=== PATIENT | female | born 1970 | race Caucasian/White ===

== ENCOUNTER 2018-01-07 07:00 | Emergency (ER) | payer BC, SELFPAY ==
[2018-01-07 07:01] VITALS: BP 138/79; PULSE 79; RESP 15; TEMP 36.7; O2SAT 98; BMI 23.6
--- NOTE | 2018-01-07 07:14 | ED.VISSUMM ---
- ER Visit Summary Date of Service: 01/07/18 Chief Complaint: Back pain History of Present Illness: The patient is a 47 F with low back pain for 2 months. Patient recently took custody of her grandchildren and has been lifting them. It seems to be making her pain worse. Denies any specific injury. She is taking ibuprofen twice a day with minimal relief. She is not sleeping well. She has trouble getting out of bed. She has some nausea. No other GI symptoms. No symptoms. No fever. No rash. She does have some right leg paresthesias. Physical Examination: Afebrile and vital signs unremarkable. Patient appears uncomfortable but not toxic or in distress. Lower lumbar spine diffusely tender to palpation bilaterally. Straight leg raise negative. Neurovascularly intact distally. Good range of motion. Skin appears normal. Test Results: None performed. Emergency Department Course and Treatment: Patient has signs and symptoms of myofascial back pain. Patient was treated with Toradol, Norflex, and Zofran. Will reassess. Patient's pain went from a 10 to an 8. She was treated with morphine subcutaneous. Patient's pain improved after morphine. She continued to have some pain, but now towards the right side of her back in the area of the SI joint. Nothing to suggest infection, fracture, or any other more serious etiologies. Patient was treated with a dose of Kenalog IM. Will prescribe a course of Motrin and Flexeril. Follow-up with primary care in the next week. Treatment Plan: As above Disposition: Discharged Impression: 1. Lumbar back pain This note was generated with [facility] dictation software. It may contain incorrect words, spelling, and punctuation that were not noted in review of the chart prior to signing ED Disposition - Plan for ED Patient: Chief Complaint: Back Referrals: NOT,DEFINED [NON-STAFF] -
[2018-01-07] MEDS: Ketorolac 60 MG/2 ML Vial IM (07:19)
[2018-01-07] MEDS: Ondansetron 4 MG/2 ML Vial IM (07:20)
[2018-01-07] MEDS: Orphenadrine 60 MG/2 ML Ampul IM (07:20)
[2018-01-07] MEDS: Morphine 4 MG/ML Syringe SC (08:13)
--- NOTE | 2018-01-07 08:52 | ED.DEP ---
ED Disposition - Plan for ED Patient: Chief Complaint: Back Instructions: Possible Causes of Low Back or Leg Pain Prescriptions: Cyclobenzaprine [Flexeril] 10 mg PO TID PRN #20 tab PRN Reason: Muscle Spasm Ibuprofen [Motrin] 800 mg PO TID 7 Days #21 tab Additional Instructions: follow up with your doctor in the next week
[2018-01-07] MEDS: Triamcinolone Acetonide 40 MG/ML Vial IM (08:55)
== END 2018-01-07 09:16 | disposition home or self-care (01) ==
PROVIDERS: Emergency Provider Emergency Medicine; Family Provider Family Medicine; PCP Family Medicine
DX: M54.5 Low back pain (principal)
CPT/HCPCS: 96372; 99282; J2405

== ENCOUNTER 2018-05-11 08:50 | Day surgery (SDC) | payer BC, SELFPAY ==
[2018-05-11] VITALS (8 sets, daily range): BP systolic 111–142; BP diastolic 67–86; PULSE 72–84; RESP 14–16; TEMP 36.6–36.8; O2SAT 96–99; BMI 31.8
[2018-05-11 09:28] LABS: Hematocrit 38.6 % (37-47); Hemoglobin 12.9 g/dl (12.0-15.0); Mean Corp Hgb Conc 33.4 g/gl (32-36); Mean Corpuscular Hgb 30.6 pg (27.0-32.0); Mean Corpuscular Volume 91.5 fL (81-99); Mean Platelet Vol. 9.2 fl (6.2-12.0); Platelet Count 294 K/mm3 (150-450); RBC Distribution Width CV 12.6 % (11.6-14.6); RBC Distribution Width SD 41.5 fl (35.1-43.9); Red Blood Count 4.22 M/mm3 (4.2-5.4); Scan Indicated on CBC? Y/N NO; White Blood Count 9.1 K/mm3 (4.4-11.0)
--- NOTE | 2018-05-11 10:25 | EMB_PTH ---
PATIENT: ELTON LEDESMA LOC: [facility] U#:[id number] AGE/SX: 47/F ROOM: RE05/11/[address]: Dr. Sasha Baker DO : 1970 BED: DIS: 05/11/2018 SPEC #: [id number] RECD: 05/11/18 12:33 STATUS: KVNG WENDY #: [id number] LINDSEY: 05/11/18 10:[address]: Sasha Baker DEPT: SURGICAL PATHOLOGY RECD BY: Cameron Landis ENTERED: 05/11/18 15:39 SP TYPE: ENDOM BX/C NATALIYA DR: Dr. Ernesto Mathias MD Tissues: Endometrium, NOS Procedures: Surgery Specimen Level IV HEADER OPERATION: Hysteroscopy, D&C Magda ablation PRE-OP DIAGNOSIS: Menorrhagia TISSUE SUBMITTED: Endometrial curettings MICROSCOPIC DIAGNOSIS Endometrial curettings: Secretory endometrium. SJ:torrie 05/12/18 MICROSCOPIC DESCRIPTION Slides are reviewed. GROSS DESCRIPTION Received is one container labeled with the patient name and designated endometrium curettings. The specimen consists of multiple fragments of hemorrhagic soft tissue that in aggregate measure 5 x 3 x 0.3 cm. The entire specimen consists is totally submitted in two cassettes. / SJ:sp 05/11/18 TC: 4 CPT: 36079
--- NOTE | 2018-05-11 11:53 | DCINST_ITS ---
Discharge Diet: No Restrictions Discharge Activity: May not drive while taking narcotic pain medications., May Not Shower, - - No tub baths Return to work on:: 05/15/18 May resume sexual activity in: 1-2 weeks Weight Bearing Status: Weight bearing as tolerated Lifting Restrictions: None Call your doctor if you observe: Fever of 101 or Higher, Inability to urinate, Inability to have a bowel movement, Using more than one pad per hour, Shortness of breath, Dizziness, Chest pain, Increased palpitations (irregular heartbeat), Calf discomfort, Uncontrolled pain Allergies/Adverse Reactions: Allergies atropine [From ] Allergy (Verified 05/10/18 11:16) Hives erythromycin base Allergy (Verified 05/10/18 11:16) Hives hyoscyamine [From ] Allergy (Verified 05/10/18 11:16) Hives Penicillins [PCN] Allergy (Verified 05/10/18 11:16) Unknown phenobarbital [From ] Allergy (Verified 05/10/18 11:16) Hives scopolamine [From ] Allergy (Verified 05/10/18 11:16) Hives Medications to take at Discharge Ibuprofen [Motrin] 800 mg PO TID 7 Days #21 tab 01/07/18 Primary Care Physician: Ernesto Mathias MD [Primary Care Provider] - Test Results: Test results from this visit will be discussed in further detail at your follow- up appointment, if applicable. Please Follow Up With: Sasha Baker DO When: 1-2 weeks
--- NOTE | 2018-05-11 13:40 | OP.PCM_ITS ---
Problem List (1) Menorrhagia Status: Acute Operative Report Date of Procedure: 05/11/18 Preoperative diagnosis: Menorrhagia Postoperative diagnosis: Menorrhagia Surgeon: Sasha Baker DO Anesthesia: MAC EBL: Minimal, < 50 cc Specimens removed: Endometrial curettings Complications: None Findings: Normal appearing uterine cavity Indications: 47 y/o with hx of menorrhagia. EMB in office benign. Endosee in office without evidence of polyp or fibroid. Pelvic US showed possible adenomyosis. Hx of tubal ligation. Discussed control options/conservative therapies and ablation with patient for menorrhagia. Patient desired ablation. Reviewed increased risk of failure given possible adenomyosis with an ablation. Patient understands this, and that if the ablation fails she will need a hysterectomy. Risks, benefits, alternatives of ablation discussed and she was consented for an ablation. Procedure: She was taken to the operating room where MAC anesthesia was found to be adequate. She was prepped and draped in the dorsal lithotomy position using yellowfin stirrups. Bimanual exam was performed noting a mobile and nonenlarged uterus in an anteverted position. A weighted speculum was placed in the vagina to expose the cervix. The anterior lip of the cervix was grasped with a single- tooth tenaculum. Uterus sounded to 10 cm in length. The cervical length was 5 cm. The cervix was serially dilated to accommodate the hysteroscope. The hysteroscope was then introduced into the uterine cavity and the uterus was distended with normal saline fluid. The cavity was examined and found to be normal without polyps. The scope was then removed. A sharp curettage was performed. The endometrial curettings were sent to pathology for review. The Magda device was then set to the correct cavity length and introduced into the uterine cavity. The device past the cavity assessment. After burn time was complete the device was removed. The tenaculum was removed and the cervix was noted to be hemostatic. The weighted speculum was removed. The patient tolerated the procedure well and was brought to the recovery room in stable condition. At the end of the procedure all instrument counts were correct.
== END 2018-05-11 14:21 | disposition home or self-care (01) ==
LOC: SDC 08:50
PROVIDERS: Family Provider Family Medicine; PCP Family Medicine; Referring Provider Obstetrics & Gynecology; Visit Provider Obstetrics & Gynecology
PROC: 0U5B8ZZ Destruction of Endometrium, Via Natural or Artificial Opening Endoscopic (ICD-10-PCS; CPT 58558; principal; 2018-05-11 10:10)
DX: N92.0 Excessive and frequent menstruation with regular cycle (principal); Z79.891 Long term (current) use of opiate analgesic
CPT/HCPCS: 00952; 58563; 36415; 85027; 86850; 86900; 88305; J7120; J2405

== ENCOUNTER 2018-06-18 09:11 | Observation (INO) | payer BC, SELFPAY ==
[2018-05-11 09:27] VITALS: BMI 31.8
[2018-06-18] VITALS (11 sets, daily range): BP systolic 98–136; BP diastolic 48–76; PULSE 61–97; RESP 16–24; TEMP 36.4–36.7; O2SAT 96–100; BMI 30.4; BMI 30.5; BMI 32.5
--- NOTE | 2018-06-18 09:22 | ED.DCSUM_ITS ---
- ER Visit Summary Date of Service: 06/18/18 Chief Complaint: Vomiting, diarrhea and chest pain History of Present Illness: The patient is a 47 F presenting with vomiting, diarrhea, and chest pain. This started around 2 AM. She has had several episodes of both vomiting and diarrhea. She denies blood in her stool or emesis. She complains of intermittent midsternal chest pressure. She states this is worse when she walks around. She also complains of diffuse abdominal cramping. She also complains of shortness of breath. Denies fever. Denies possibility of bad food exposure. Denies recent antibiotics. Denies other complaints. Physical Examination: Vitals are stable. Patient is afebrile. Alert no acute distress. HEENT exam is unremarkable. Neck is supple. Lungs are clear and equal bilaterally. Heart is regular rate and rhythm. Abdomen is soft mild diffuse tenderness with no rebound or guarding Extremities are unremarkable. Skin is warm and dry. No focal neurologic deficit. Remainder of exam is unremarkable. Emergency Department Course and Treatment: Patient given IV fluids, Zofran, morphine. EKG is sinus rate of 91 with lateral T wave inversion. This is changed from previous. When patient ambulated to the bathroom she started having increasing chest pressure. Repeat EKG shows normal sinus rhythm rate of 92 with lateral T wave inversion. Chest x-ray shows no acute process. CBC shows white count 20.0. Chemistries show potassium 3.3, glucose 136. Lipase is normal. Urinalysis unremarkable. Troponin is negative. D-dimer negative. Due to her elevated white count and abdominal pain, CT abdomen pelvis was obtained and shows fluid-filled loops of colon suggesting diarrhea. No evidence of small bowel obstruction. Status post appendectomy. While in the emergency department patient has had intermittent episodes of chest pressure. She is currently pain- free. She was given aspirin. Discussed with the hospitalist for observation. Disposition: Observation Impression: Chest pain; vomiting and diarrhea This note was generated with [employer] dictation software. It may contain incorrect words, spelling, and punctuation that were not noted in review of the chart prior to signing ED Disposition - Plan for ED Patient: Disposition: Acute Care Hospital [facility] Chief Complaint: Nausea/Vomiting/Diarrhea
--- NOTE | 2018-06-18 09:25 | RAD_ITS ---
STUDY: X-RAY CHEST REASON FOR EXAM: Female, 47 years old. Shortness of breath, dyspnea TECHNIQUE: AP COMPARISON: 08/14/2013 FINDINGS: EKG leads project over the chest. The lungs are clear and expanded. There is no demonstrated pleural abnormality. Normal size heart. Normal mediastinum and tyra. Normal visualized pulmonary arteries. Normal visualized aortic arch and descending thoracic aorta. No acute bony process. Mild scoliosis similar. There is no demonstrated abnormality of the visualized soft tissue structures of the upper abdomen. RAD/Chest 1 View (Portable) IMPRESSION: 1. Stable, nonacute portable x-ray examination of the chest. Electronically Signed: Parish Bustos MD at 9:54 EST , Service support ,
[2018-06-18] MEDS: 0.9% Normal Saline 1,000 ML 1000 ML IV (09:30)
[2018-06-18] MEDS: Ondansetron 4 MG/2 ML Vial IV ×2 (09:30→17:39)
[2018-06-18 09:36] LABS: Absolute Neutrophil Count 18.4 X10^3/uL (2.0-7.7); Basophil# 0.02 X10^3/uL; Basophil% 0.1 % (0-1); Eosinophil# 0.03 X10^3/uL; Eosinophils% 0.2 % (0-5); Hematocrit 42.3 % (37-47); Hemoglobin 14.4 g/dl (12.0-15.0); Mean Corpuscular Hgb 30.2 pg (27.0-32.0); Mean Corpuscular Volume 88.7 fL (81-99); Monocyte# 0.72 X10^3/uL; Monocyte% 3.6 % (0-10); Neutrophil # 18.35 X10^3/uL (2.7-7.7); Neutrophil % 91.9 % (47-70); POSITIVE COUNT NO; POSITIVE MORPHOLOGY NO; Platelet Count 342 K/mm3 (150-450); RBC Distribution Width CV 12.6 % (11.6-14.6); RBC Distribution Width SD 40.2 fl (35.1-43.9); Red Blood Count 4.77 M/mm3 (4.2-5.4)
[2018-06-18 09:54] LABS: Bacteria 0 SEEN /hpf (None Seen); Mucous, Urine 0 SEEN /hpf (<or=2+); Red Blood Cells-Urine 0 SEEN /hpf (0-5)
[2018-06-18 09:55] LABS: D-Dimer Quantitative (DVT/PE) < 0.27 FEU/ug/m (0.27-0.49)
[2018-06-18 09:58] LABS: Color, Urine Yellow (Yellow); Glucose, Dipstick Normal (Normal); Leukocyte Esterase-Dipstick 25 /ul (Negative); Nitrite-Dipstick Negative (Negative); Occult Blood-Urine 25 /ul (Negative); Protein-Dipstick 30 mg/dl (Negative); Specific Gravity, Urine 1.015 (1.002-1.030); Urine Bilirubin Dipstick Negative (Negative); Urine Clarity Sl. Cloudy (Clear); Urine Urobilinogen Normal (Normal); Urine pH 6.5 (5.0 - 8.0)
[2018-06-18 09:59] LABS: Ketone-Dipstick 150 mg/dl (Negative)
[2018-06-18 10:00] LABS: Squamous Epithelial Cells - UA 0-5 SEEN /hpf (5-10); White Blood Cells 0-5 SEEN /hpf (0-5)
[2018-06-18 10:04] LABS: POSITIVE DIFFERENTIAL NO
[2018-06-18 11:03] LABS: AST(SGOT) 19 U/L (15-37); Alanine Aminotransfer ALT/SGPT 23 U/L (13-56); Albumin, Serum 4.1 g/dL (3.2-5.0); Alkaline Phosphatase 77 U/L (45-117); Anion Gap 14 (5-15); BUN 17 mg/dL (7-18); BUN/Creat Ratio 16.8 RATIO (10-20); Bilirubin, Direct 0.18 mg/dL (0.00-0.30); Calcium,Total 8.8 mg/dL (8.5-10.1); Chloride 105 mmol/L (98-107); Creatinine, Serum 1.01 mg/dL (0.55-1.02); EST Glomerular Filtration Rate 63 mL/min (>60); Est Glom Filt Rate - Afr Amer 76 mL/min (>60); Estimated Creatinine Clearance 49.99 ml/min; Globulin 4.3 g/dL (2.2-4.2); Glucose 136 mg/dL (74-106); Lipase 147 U/L (73-393); Potassium 3.3 mmol/L (3.5-5.1); Protein, Total 8.4 g/dL (6.4-8.2); Sodium Level 138 mmol/L (136-145)
--- NOTE | 2018-06-18 11:32 | US_ITS ---
STUDY: ABDOMINAL ULTRASOUND - RIGHT UPPER QUADRANT REASON FOR VISIT: Female, 47 years old. Right upper quadrant pain TECHNIQUE: Ultrasound evaluation of the right upper quadrant was performed with real-time and static sawant-scale imaging. TECHNICAL QUALITY: Limited. Examination limited by bowel gas. COMPARISON: None. FINDINGS: Liver: The liver measures 15.5 cm. There is normal echogenicity of the liver. The bile ducts are within normal limits. There is hepatic color flow. The direction of portal flow is hepatopetal. There is no demonstrated mass lesion. Gallbladder: Normal distended gallbladder. The gallbladder wall measures 2.5 mm. There is a negative sonographic Acevedo's sign. There is no pericholecystic fluid. There are no gallstones. Common Bile Duct (C.B.D.): The common bile duct measures 2.5 mm. Pancreas: Normal size of the head, body and tail of the pancreas. There is normal echogenicity of the pancreas. There is no demonstrated pancreatic mass or cyst. Right Kidney: Normal size of the right kidney. The right kidney measures 9.5 cm. Normal renal cortex. The right cortex measures 1.2 cm. There is no demonstrated renal mass or cyst. There is no right hydronephrosis. US/Gallbladder IMPRESSION: Normal right upper quadrant ultrasound examination. Electronically Signed: Tomás Blair DO at 14:38 EST Tel , Service support ,
--- NOTE | 2018-06-18 11:32 | CT_ITS ---
STUDY: CT ABDOMEN AND PELVIS WITH CONTRAST REASON FOR EXAM: Female, 47 years old. Nausea and vomiting x6 days RADIATION DOSAGE (If Supplied By Facility): CTDIvol = ( 16.37 ) mGy, DLP = ( 1069.16 ) mGycm TECHNIQUE: Transaxial images were obtained from the dome of the diaphragm to the symphysis pubis with oral contrast. 100 ml of Isovue 300 contrast was administered. Sagittal and coronal images were reconstructed. Individualized dose optimization techniques were used for this CT. COMPARISON: None. FINDINGS: The visualized lung bases are unremarkable. The visualized portions of the heart are within normal limits. Normal liver. Normal gallbladder and extrahepatic biliary system. Normal spleen. Normal pancreas. Normal bilateral adrenal glands. Normal right kidney. Normal left kidney. Normal visualized stomach. Normal small intestine. Fluid-filled loops of colon suggesting diarrhea. There are surgical clips in the region of the appendix consistent with a prior appendectomy. Normal abdominal aorta. Normal inferior vena cava. Normal retroperitoneum. Normal urinary bladder. Normal visualized uterus. Normal abdominal wall. Normal osseous structures. CT/Abdomen/Pelvis WITH Contrast IMPRESSION: Fluid-filled loops of colon suggesting diarrhea. No evidence of small bowel obstruction. Status post appendectomy. Electronically Signed: Tomás Blair DO at 14:34 EST Tel , Service support ,
[2018-06-18] MEDS: Morphine 4 MG/ML Syringe IV ×2 (12:00→13:21)
[2018-06-18] MEDS: proMETHazine 25 MG/ML Syringe 6.25 MG IV (12:00)
[2018-06-18] MEDS: Aspirin 325 MG Tablet PO (15:23)
--- NOTE | 2018-06-18 15:36 | PCM.HP.STD ---
Problem List (1) Gastroenteritis Status: Acute (2) Hypokalemia Status: Acute (3) Chest pain Status: Acute History of Present Illness Date of Admission: 06/18/18 Chief Complaint: Nausea vomiting and diarrhea The patient is a 47 year old F in relatively good health who underwent uterine ablation on account of menorrhagia a month prior to her admission who presents with nausea vomiting and diarrhea. Patient does not recall if she was prescribed antibiotics during her procedure. Her symptoms started at night prior to coming in. She did develop abdominal cramps which was later associated with nausea vomiting and had 6 loose bowel movement prior to coming into the ED. In the emergency department patient underwent extensive workup including CT of the abdomen and pelvis which did Fluid-filled loops of colon suggesting diarrhea.. Patient apparently also did develop chest pain when she stood up to go to the bathroom was in the emergency department in was found to have EKG changes mainly T wave inversions. Cardiac enzymes however remain negative. Patient subsequently admitted to a monitored bed for further management Past Medical History Allergies atropine [From ] Allergy (Verified 06/18/18 09:31) Hives erythromycin base Allergy (Verified 06/18/18 09:31) Hives hyoscyamine [From ] Allergy (Verified 06/18/18 09:31) Hives Penicillins [PCN] Allergy (Verified 06/18/18 09:31) Unknown phenobarbital [From ] Allergy (Verified 06/18/18 09:31) Hives scopolamine [From ] Allergy (Verified 06/18/18 09:31) Hives Home Medications: Ambulatory Orders Medication Instructions Recorded Ibuprofen [Motrin] 800 mg PO TID 7 Days #21 tab 01/07/18 Smoking Status: Never smoker - *Family History Maternal History Items: Diabetes Paternal History Items: Diabetes, Heart Disease - Father of a massive heart attack at age 56 Review of Systems Constitutional: Reports: Anorexia, Malaise, Weakness HEENT: Denies: Head Aches, Sinus Congestion, Sinus Drainage Cardiovascular: Reports: Chest Pain Respiratory: Denies: Cough, Shortness of breath at rest, Shortness of breath upon exertion, Sputum production Gastrointestinal: Reports: Abdominal Pain, Diarrhea, Melena, Vomiting Genitourinary: Denies: Dysuria, Frequency, Hematuria, Urgency Musculoskeletal: Denies: Joint Pain, Joint Tenderness Skin: Denies: Rash Neurological: Denies: Focal weakness, Numbness, Tingling Psychiatric: Denies: Homicidal Ideations, Suicidal Ideations VTE Information - Inpt Only VTE Present on Admission: No VTE Mechan Device Prophylaxis: SCD's VTE Pharm Prophylaxis ordered?: No Patient Problems: Active and Suspected Problems Gastroenteritis (Acute) Hypokalemia (Acute) Chest pain (Acute) Objective: GENERAL: cooperative HEENT: Atraumatic; moist oral mucosa EYES; Anicteric, Normal Conjunctiva NECK; supple, normal thyroid, no distended JVD. RESPIRATORY: Diminished to auscultation bilaterally, CARDIOVASCULAR: Regular S1 S2, no audible murmurs GI: soft, no focal tenderness, normoactive bowel sounds, : No Renal angle tenderness; EXTREMITIES: No edema, no clubbing, no cyanosis. MUSCULOSKELETAL: No Joint Tenderness; no muscle waisting NEURO: Awake; no lateralizing signs. SKIN: No Rash PSYCH; Normal affect - Physical Exam Vital Signs Temp Pulse Resp BP Pulse Ox 97.6 F L 88 16 120/64 100 06/18/18 09:12 06/18/18 15:20 06/18/18 15:20 06/18/18 15:20 06/18/18 15:20 Oxygen Flow Rate (L/min) 2 Oxygen Delivery Method Room Air Weight: 70.8 kg Body Mass Index (BMI) 30.4 Laboratory Tests Past 24 Hrs 06/18/18 06/18/18 06/18/18 09:25 09:25 09:25 WBC 20.0 H RBC 4.77 Hgb 14.4 Hct 42.3 MCV 88.7 MCH 30.2 MCHC 34.0 RDW 12.6 RDW Differential 40.2 Plt Count 342 MPV 9.0 Immature Gran % (Auto) 0.200 Neut % (Auto) 91.9 H Lymph % (Auto) 4.0 L Stark % (Auto) 3.6 Eos % (Auto) 0.2 Baso % (Auto) 0.1 Absolute Neuts (auto) 18.4 H Absolute Lymphs (auto) 0.80 L Total Counted Not Reportable D-Dimer Quant (PE/DVT) < 0.27 L Sodium 138 Potassium 3.3 L Chloride 105 Carbon Dioxide 19.0 L Anion Gap 14 BUN 17 Creatinine 1.01 Estim Creat Clear Calc 49.99 Est GFR (MDRD) Af Amer 76 Est GFR (MDRD) Non-Af 63 BUN/Creatinine Ratio 16.8 Glucose 136 H Calcium 8.8 Total Bilirubin 0.90 Direct Bilirubin 0.18 AST 19 ALT 23 Alkaline Phosphatase 77 Troponin I < 0.015 Total Protein 8.4 H Albumin 4.1 Globulin 4.3 H Lipase 147 Urine Color Urine Clarity Urine pH Ur Specific [place] Urine Protein Urine Glucose (UA) Urine Ketones Urine Occult Blood Urine Nitrite Urine Bilirubin Urine Urobilinogen Ur Leukocyte Esterase Urine RBC Urine WBC Ur Squamous Epith Cells Urine Bacteria Urine Mucus 06/18/18 09:45 WBC RBC Hgb Hct MCV MCH MCHC RDW RDW Differential Plt Count MPV Immature Gran % (Auto) Neut % (Auto) Lymph % (Auto) Stark % (Auto) Eos % (Auto) Baso % (Auto) Absolute Neuts (auto) Absolute Lymphs (auto) Total Counted D-Dimer Quant (PE/DVT) Sodium Potassium Chloride Carbon Dioxide Anion Gap BUN Creatinine Estim Creat Clear Calc Est GFR (MDRD) Af Amer Est GFR (MDRD) Non-Af BUN/Creatinine Ratio Glucose Calcium Total Bilirubin Direct Bilirubin AST ALT Alkaline Phosphatase Troponin I Total Protein Albumin Globulin Lipase Urine Color Yellow Urine Clarity Sl. Cloudy Urine pH 6.5 Ur Specific [place] 1.015 Urine Protein 30 H Urine Glucose (UA) Normal Urine Ketones 150 H Urine Occult Blood 25 H Urine Nitrite Negative Urine Bilirubin Negative Urine Urobilinogen Normal Ur Leukocyte Esterase 25 H Urine RBC 0 SEEN Urine WBC 0-5 SEEN Ur Squamous Epith Cells 0-5 SEEN Urine Bacteria 0 SEEN Urine Mucus 0 SEEN Assessment/Plan All Active Problems Menorrhagia (Acute) Gastroenteritis (Acute) Hypokalemia (Acute) Chest pain (Acute) Patient is a 47-year-old lady presented with nausea vomiting and diarrhea 1. Acute colitis: Patient presented with nausea vomiting diarrhea, in addition patient had elevated WBC count. CT of the abdomen obtained in the emergency department demonstrated Fluid-filled loops of colon suggesting diarrhea. No evidence of small bowel obstruction patient admitted to a monitored bed placing enteric precautions as well as ruling out C. difficile. The meantime patient was treated symptomatically with IV fluids as well as Cipro and Flagyl 2. Chest pain: Admitted to a monitored bed ruling out OH with serial enzymes patient undergo a nuclear stress test possibly as outpatient once her colitis resolves 3. Recent endometrial ablation on account of menorrhagia 4. History of appendectomy 5. DVT prophylaxis SC Lovenox Clinical Impression(s) from Imaging Studies Chest X-Ray 06/18/18 09:25 IMPRESSION: 1. Stable, nonacute portable x-ray examination of the chest. Electronically Signed: Parish Bustos MD at 9:54 EST , Service support , Abdomen/Pelvis CT 06/18/18 11:32 IMPRESSION: Fluid-filled loops of colon suggesting diarrhea. No evidence of small bowel obstruction. Status post appendectomy. Electronically Signed: Tomás Blair DO at 14:34 EST Tel , Service support , Code Visit OBSV E&M: 37210 Initial observation care L3
[2018-06-18] MEDS: Ibuprofen 400 MG Tablet 800 MG PO (17:32)
[2018-06-18] MEDS: Ciprofloxacin 400 MG/200 ML BAG 200 MG IV (22:05)
[2018-06-19] VITALS (8 sets, daily range): BP systolic 103–112; BP diastolic 57–61; PULSE 57–74; RESP 16–18; TEMP 36.2–36.6; O2SAT 92–99
--- NOTE | 2018-06-19 06:00 | RAD_ITS ---
STUDY: X-RAY - ABDOMEN/PELVIS REASON FOR EXAM: Female, 47 years old. Nausea vomiting and diarrhea TECHNIQUE: One view COMPARISON: None. FINDINGS: There is contrast within nondistended colon. The tip of the nasogastric tube is in the stomach. There is no small bowel distention and no free intraperitoneal air. There are no abnormal calcifications in the expected locations of the kidneys. RAD/Abdomen Single View IMPRESSION: No acute findings in the abdomen. Electronically Signed: Faisal Sultana MD at 7:59 EST Tel , Service support ,
[2018-06-19 06:48] LABS: Hematocrit 34.8 % (37-47); Hemoglobin 11.1 g/dl (12.0-15.0); Mean Corp Hgb Conc 31.9 g/gl (32-36); Mean Corpuscular Volume 94.1 fL (81-99); Mean Platelet Vol. 9.3 fl (6.2-12.0); Platelet Count 263 K/mm3 (150-450); White Blood Count 5.5 K/mm3 (4.4-11.0)
[2018-06-19 06:52] LABS: Scan Indicated on CBC? Y/N NO
[2018-06-19 07:05] LABS: ALB/GLOB Ratio 0.9 RATIO (0.9-2.4); AST(SGOT) 17 U/L (15-37); Alanine Aminotransfer ALT/SGPT 15 U/L (13-56); Albumin, Serum 2.8 g/dL (3.2-5.0); Alkaline Phosphatase 55 U/L (45-117); Anion Gap 6 (5-15); BUN 10 mg/dL (7-18); BUN/Creat Ratio 13.5 RATIO (10-20); Calcium,Total 7.3 mg/dL (8.5-10.1); Chloride 112 mmol/L (98-107); Creatinine, Serum 0.74 mg/dL (0.55-1.02); EST Glomerular Filtration Rate 89 mL/min (>60); Est Glom Filt Rate - Afr Amer 108 mL/min (>60); Estimated Creatinine Clearance 68.23 ml/min; Globulin 3.1 g/dL (2.2-4.2); Glucose 89 mg/dL (74-106); Potassium 3.7 mmol/L (3.5-5.1); Protein, Total 5.9 g/dL (6.4-8.2); Sodium Level 142 mmol/L (136-145); Thyroid Stim Hormone (TSH) 0.86 uIU/mL (0.358-3.74)
[2018-06-19] MEDS: Ciprofloxacin 400 MG/200 ML BAG 200 MG IV (10:29)
[2018-06-19] MEDS: Enoxaparin 40 MG/0.4 ML Syringe SC (10:37)
--- NOTE | 2018-06-19 12:02 | DCINST_ITS ---
- Discharge Diagnoses Current Active Problems: Current Active and Chronic Problems Gastroenteritis (Acute) Hypokalemia (Acute) Chest pain (Acute) Reason(s) for Visit for Discharge Instructions: Diarrhea, nausea, vomiting You will use the following diet at home:: Regular Your food should be the consistency of: Regular Your liquids should be the consistency of: Regular/Thin Discharge Activity: Return to Normal Activity Additional Instructions: Continue to keep yourself hydrated. Maintain good hand- hygiene. Come back to the ED if diarrhea worsens or you develop a fever or chills or worsening abdominal pain. Allergies/Adverse Reactions: Allergies atropine [From ] Allergy (Verified 06/18/18 09:31) Hives erythromycin base Allergy (Verified 06/18/18 09:31) Hives hyoscyamine [From ] Allergy (Verified 06/18/18 09:31) Hives Penicillins [PCN] Allergy (Verified 06/18/18 09:31) Unknown phenobarbital [From ] Allergy (Verified 06/18/18 09:31) Hives scopolamine [From ] Allergy (Verified 06/18/18 09:31) Hives Medications to take at Discharge Ibuprofen [Motrin] 800 mg PO TID 7 Days #21 tab 01/07/18 Primary Care Physician: Ernesto Mathias MD [NON-STAFF] - Please follow up with your Primary Care Physician in: within 1-2 weeks Test Results: Test results from this visit will be discussed in further detail at your follow- up appointment, if applicable. Proposed Discharge Date: 06/19/18
--- NOTE | 2018-06-19 12:03 | PCM.DC.SUM ---
Discharge Date and Diagnosis Date of Admission: 06/18/18 Date of Discharge: 06/19/18 - Primary Discharge Diagnosis Active and Suspected Problems Acute Norovirus Gastroenteritis (Acute) Hypokalemia (Acute) Chest pain (Acute) - Secondary Discharge Diagnosis None Hospital Course and Treatment Imaging Results: Clinical Impression(s) from Imaging Studies Chest X-Ray 06/18/18 09:25 IMPRESSION: 1. Stable, nonacute portable x-ray examination of the chest. Electronically Signed: Parish Bustos MD at 9:54 EST , Service support , Abdomen/Pelvis CT 06/18/18 11:32 IMPRESSION: Fluid-filled loops of colon suggesting diarrhea. No evidence of small bowel obstruction. Status post appendectomy. Electronically Signed: Tomás Blair DO at 14:34 EST Tel , Service support , Gallbladder Ultrasound 06/18/18 11:32 IMPRESSION: Normal right upper quadrant ultrasound examination. Electronically Signed: Tomás Blair DO at 14:38 EST Tel , Service support , KUB X-Ray 06/19/18 06:00 IMPRESSION: No acute findings in the abdomen. Electronically Signed: Faisal Sultana MD at 7:59 EST Tel , Service support , ADDENDUM: 06/19/18 2341 None Operations: None Procedures: None Summary of Care Provided: The patient is a 47 year old F with no significant past medical history who comes in with complaints of nausea vomiting and diarrhea, more than 6 times on the day of admission. Patient admits to having going to [facility] with her family and all of them subsequently in less than 24 hours was sick with vomiting and diarrhea. She had an elevated white cell count on arrival. CT of abdomen pelvis showed fluid-filled loops of colon suggestive of diarrhea. No evidence of small bowel obstruction was seen. Shee also complained of chest pain, EKG was unremarkable, serial enzymes were negative. Patient was admitted to a telemetry bed, stool studies was negative for C. difficile, positive for neurovirus. Patient received IV fluids. She was hypokalemic on admission but resolved the next day. She was consulted on hand hygiene after bowel movements. Encouraged to drink lots of fluids. She was given 2 days of work to recuperate. Patient will need a stress test in the outpatient once her acute gastroenteritis resolves. Subjective: On the day of discharge, patient denied any new complaints, she felt improved. No abdominal pain or fever or chills. Has had only one bowel movement. - Physical Exam General: Alert, Oriented x3, Cooperative, No apparent distress, - HEENT: Atraumatic, PERRLA, EOMI, Normocephalic Oral: Moist Mucosa - Obese Neck: Supple, No JVD, Negative Carotid Bruits Lungs: Clear to auscultation, Normal air movement Cardiovascular: Regular rate, Regular Rhythm, Normal S1, Normal S2, No murmurs Abdomen: Bowel Sounds Present, Soft, Non Tender, Non-Distended, No Hepato-splenomegaly Extremities: No edema Skin: No rashes, No breakdown Musculoskeletal: No Tenderness to Palpation of Joints or Extremities Lymphatic: No Cervical, Supraclavicular, or Inguinal Adenopathy Neurological: Cranial nerves II-XII grossly intact, Neuro grossly intact Psych/Mental Status: Normal Affect, Appropriate Vital Signs Temp Pulse Resp BP Pulse Ox 97.8 F 74 18 110/58 L 99 06/19/18 09:30 06/19/18 11:07 06/19/18 09:30 06/19/18 09:30 06/19/18 09:30 Oxygen Flow Rate (L/min) 2 Oxygen Delivery Method Room Air Weight: 75.5 kg Body Mass Index (BMI) 32.5 Intake and Output for Last 24 Hours 06/17/18 06/18/18 06/19/18 23:59 23:59 23:59 Intake Total 1482 / 1482 843 / 843 Output Total 300 / 300 Balance 1182 / 1182 843 / 843 Microbiology Past 72 Hours 06/19/18 08:45 C. difficile DNA Amplification - Final Stool Laboratory Tests Past 24 Hrs 06/18/18 06/18/18 06/18/18 15:43 17:28 19:04 WBC RBC Hgb Hct MCV MCH MCHC RDW RDW Differential Plt Count MPV D-Dimer Quant (PE/DVT) Cancelled Sodium Potassium Chloride Carbon Dioxide Anion Gap BUN Creatinine Estim Creat Clear Calc Est GFR (MDRD) Af Amer Est GFR (MDRD) Non-Af BUN/Creatinine Ratio Glucose Calcium Total Bilirubin AST ALT Alkaline Phosphatase Troponin I < 0.015 < 0.015 Total Protein Albumin Globulin Albumin/Globulin Ratio TSH 06/19/18 06/19/18 05:57 05:57 WBC 5.5 RBC 3.70 L Hgb 11.1 L Hct 34.8 L MCV 94.1 MCH 30.0 MCHC 31.9 L RDW 13.0 RDW Differential 43.0 Plt Count 263 MPV 9.3 D-Dimer Quant (PE/DVT) Sodium 142 Potassium 3.7 Chloride 112 H Carbon Dioxide 24.0 Anion Gap 6 BUN 10 Creatinine 0.74 Estim Creat Clear Calc 68.23 Est GFR (MDRD) Af Amer 108 Est GFR (MDRD) Non-Af 89 BUN/Creatinine Ratio 13.5 Glucose 89 Calcium 7.3 L Total Bilirubin 0.70 AST 17 ALT 15 Alkaline Phosphatase 55 Troponin I Total Protein 5.9 L Albumin 2.8 L Globulin 3.1 Albumin/Globulin Ratio 0.9 TSH 0.86 Discharge Diet: No Restrictions Discharge Activity: Return to Normal Activity Home Medications: Medications to take at Discharge Ibuprofen [Motrin] 800 mg PO TID 7 Days #21 tab 01/07/18 Primary Care Physician: Ernesto Mathias MD [NON-STAFF] - Please follow up with your Primary Care Physician in: within 1-2 weeks Medical Necessity - Tobacco Use Smoking Status: Never smoker Tobacco Use: Non-smoker Meaningful Use Info Meaningful Use Diagnoses (Choose all that apply): None applicable Code Visit Inpatient E&M: 44192 Subs Hosp L2
[2018-06-19] MEDS: Ibuprofen 400 MG Tablet 800 MG PO (12:23)
== END 2018-06-19 12:00 | disposition home or self-care (01) ==
LOC: ED 09:21 → PCU 15:35
PROVIDERS: Admitting Provider Internal Medicine; Emergency Provider Emergency Medicine; Visit Provider Internal Medicine
DX: A08.19 Acute gastroenteropathy due to other small round viruses (principal); E87.6 Hypokalemia; R07.89 Other chest pain; R06.00 Dyspnea, unspecified; Z23 Encounter for immunization
CPT/HCPCS: 36415; 71045; 74018; 74177; 76705; 80048; 80053; 80076; 81001; 83690; 84443; 84484; 85025; 85027; 85379; 87493; 87506; 93005; 96361; 96365; 96366; 96367; 96372; 96375; 96376; 99218; 99251; 99283; J7030; Q9967; 90686; A4216; G0378; G0463; J0744; J2405

== ENCOUNTER 2018-11-05 21:01 | Emergency (ER) | payer BC, SELFPAY ==
[2018-06-18 16:32] VITALS: BMI 32.5
[2018-11-05 21:05] VITALS: BP 145/80; PULSE 95; RESP 16; TEMP 36.9; O2SAT 95; BMI 32.0
--- NOTE | 2018-11-05 21:18 | CT_ITS ---
STUDY: CT ABDOMEN AND PELVIS WITHOUT CONTRAST REASON FOR EXAM: Female, 48 years old. Dark stool. Abdominal pain. RADIATION DOSAGE (If Supplied By Facility): CTDIvol = ( 9.63 ) mGy, DLP = ( 447.32 ) mGycm TECHNIQUE: Transaxial images were obtained from the dome of the diaphragm to the symphysis pubis without oral contrast, and without intravenous contrast. Sagittal and coronal images were reconstructed. Individualized dose optimization techniques were used for this CT. COMPARISON: 06/18/2018. FINDINGS: The visualized lung bases are unremarkable. The visualized portions of the heart are within normal limits. There is decreased attenuation of the liver consistent with steatosis. There is hepatomegaly. Normal gallbladder and extrahepatic biliary system. Normal spleen. Normal pancreas. Normal bilateral adrenal glands. Normal right kidney. Normal left kidney. No definite renal or ureteral stones are seen. There is no hydronephrosis on either side. Evaluation of the GI tract is limited by absence of oral contrast. Cannot exclude stomach wall thickening. No dilated loops of bowel or evidence for obstruction. Cannot exclude segmental thickening of the marinelli of the small or large bowel. Cannot exclude enteritis or colitis. Moderate diffuse fecal retention. Diverticulosis without definite diverticulitis. Appendix has been removed. Normal abdominal aorta. Normal inferior vena cava. Normal retroperitoneum. Normal urinary bladder. Normal visualized uterus. There is a small umbilical hernia containing fat. Normal osseous structures. CT/Abdomen/Pelvis without Cont IMPRESSION: No acute abnormality seen. Fatty liver and hepatomegaly. Electronically Signed: Dread Nichols MD at 22:10 EDT , Service support ,
--- NOTE | 2018-11-05 21:33 | ED.VISSUMM ---
- ER Visit Summary Date of Service: 11/05/18 Chief Complaint: Abdominal pain History of Present Illness: The patient is a 48 F who presents with abdominal pain. Started earlier today. She has sharp diffuse abdominal pain. She states sometimes it concentrates in the lower abdomen. She denies nausea, vomiting, diarrhea or constipation. She has had no urinary symptoms. She had a uterine ablation in April and has had an appendectomy in the past. She denies any fevers. She took 3 ibuprofen which did not help with her pain today. Physical Examination: Vital signs reviewed. HEENT exam unremarkable. Heart is regular rate and rhythm without murmurs. Lungs are clear to auscultation. Abdomen is soft with suprapubic tenderness to palpation. There is no guarding or rebound tenderness. Extremities reveal no edema. Skin exam normal. Neurologic exam normal. Test Results: Laboratory studies are unremarkable save for a white blood count of 14.1 and AST is 12. UA has no infection. CT of the abdomen pelvis without contrast reveals no acute findings. Emergency Department Course and Treatment: Patient was given morphine but she still had some pressure in her abdomen so I gave her fentanyl. She is allergic to hyoscyamine and scopolamine so I did not elect to give her any dicyclomine. Patient will be discharged with naproxen to see if this will help with her pain. I do not see any acute pathology at this time. She will need to call her PCP tomorrow for follow-up Treatment Plan: [] Disposition: Discharge Impression: Abdominal pain This note was generated with [employer] dictation software. It may contain incorrect words, spelling, and punctuation that were not noted in review of the chart prior to signing ED Disposition - Plan for ED Patient: Referrals: Care Physician,No Primary [Primary Care Provider] -
[2018-11-05] MEDS: Morphine 4 MG/ML Syringe IV (21:36)
[2018-11-05 21:46] LABS: Bacteria 0 SEEN /hpf (None Seen); Mucous, Urine 0 SEEN /hpf (<or=2+); Red Blood Cells-Urine 0 SEEN /hpf (0-5)
[2018-11-05 21:48] LABS: Color, Urine Yellow (Yellow); Glucose, Dipstick Normal (Normal); Ketone-Dipstick Negative (Negative); Leukocyte Esterase-Dipstick 25 /ul (Negative); Nitrite-Dipstick Negative (Negative); Occult Blood-Urine 150 /ul (Negative); Protein-Dipstick Negative (Negative); Specific Gravity, Urine 1.015 (1.002-1.030); Urine Bilirubin Dipstick Negative (Negative); Urine Clarity Cloudy (Clear); Urine Urobilinogen Normal (Normal)
[2018-11-05 21:50] LABS: Absolute Lymphocyte Count 1.43 X10^3/ul (0.83-4.51); Absolute Neutrophil Count 11.5 X10^3/uL (2.0-7.7); Basophil# 0.02 X10^3/uL; Basophil% 0.1 % (0-1); Eosinophil# 0.13 X10^3/uL; Eosinophils% 0.9 % (0-5); Hematocrit 38.9 % (37-47); Hemoglobin 12.9 g/dl (12.0-15.0); Lymphocyte # 1.43 X10^3/ul (4.0); Lymphocyte % 10.1 % (19-41); Mean Corp Hgb Conc 33.2 g/gl (32-36); Mean Corpuscular Hgb 30.4 pg (27.0-32.0); Mean Corpuscular Volume 91.5 fL (81-99); Mean Platelet Vol. 9.3 fl (6.2-12.0); Monocyte# 1.02 X10^3/uL; Monocyte% 7.2 % (0-10); Neutrophil # 11.52 X10^3/uL (2.7-7.7); Neutrophil % 81.6 % (47-70); POSITIVE COUNT NO; POSITIVE DIFFERENTIAL NO; POSITIVE MORPHOLOGY NO; Platelet Count 275 K/mm3 (150-450); RBC Distribution Width CV 12.9 % (11.6-14.6); RBC Distribution Width SD 42.8 fl (35.1-43.9); Red Blood Count 4.25 M/mm3 (4.2-5.4); White Blood Count 14.1 K/mm3 (4.4-11.0)
[2018-11-05 21:58] LABS: Squamous Epithelial Cells - UA 0-5 SEEN /hpf (5-10)
[2018-11-05 21:59] LABS: White Blood Cells 0-5 SEEN /hpf (0-5)
[2018-11-05 22:03] LABS: ALB/GLOB Ratio 1.1 RATIO (0.9-2.4); AST(SGOT) 12 U/L (15-37); Alanine Aminotransfer ALT/SGPT 17 U/L (13-56); Albumin, Serum 4.1 g/dL (3.2-5.0); Alkaline Phosphatase 71 U/L (45-117); Anion Gap 7 (5-15); BUN 13 mg/dL (7-18); BUN/Creat Ratio 13.1 RATIO (10-20); Calcium,Total 8.4 mg/dL (8.5-10.1); Chloride 106 mmol/L (98-107); Creatinine, Serum 0.99 mg/dL (0.55-1.02); EST Glomerular Filtration Rate 64 mL/min (>60); Est Glom Filt Rate - Afr Amer 77 mL/min (>60); Estimated Creatinine Clearance 50.46 ml/min; Globulin 3.9 g/dL (2.2-4.2); Glucose 95 mg/dL (74-106); Potassium 3.5 mmol/L (3.5-5.1); Sodium Level 139 mmol/L (136-145)
[2018-11-05] MEDS: fentaNYL 100 MCG/2 ML Ampul 50 MCG IV (22:45)
[2018-11-05 22:48] VITALS: BP 121/58; PULSE 78; RESP 18; O2SAT 96
--- NOTE | 2018-11-05 22:52 | ED.DEP ---
ED Disposition - Plan for ED Patient: Disposition: Home or Assisted Living Instructions: ED Abdominal Pain Unkn Cause Prescriptions: Naproxen [Naprosyn] 500 mg PO BID PRN #20 tab Referrals: Care Physician,No Primary [Primary Care Provider] -
[2018-11-05 23:14] VITALS: RESP 18
== END 2018-11-05 23:14 | disposition home or self-care (01) ==
PROVIDERS: Emergency Provider Emergency Medicine
DX: R10.9 Unspecified abdominal pain (principal)
CPT/HCPCS: 74176; 80053; 81001; 85025; 96374; 96375; 99283; A4216

== ENCOUNTER 2018-11-07 03:14 | Emergency (ER) | payer BC, SELFPAY ==
[2018-11-07 03:14] VITALS: BP 163/81; PULSE 91; RESP 16; TEMP 36.8; O2SAT 98; BMI 27.8
--- NOTE | 2018-11-07 03:31 | ED.VIS.GEN ---
History of Present Illness Informant: Patient Narrative: Stated for the last 3 days she has had lower abdominal pain. She describes it as sharp and cramping. It is continuous and waxes and wanes. It is in her diffuse lower abdomen. She stated she is on her period currently. She has had 3 days of mild spotting. She had a uterine ablation done last April and started having spotting symptoms in August 3 days/month. She denies any nausea vomiting or diarrhea. Normal bowel movement schedule. She was seen in the emergency department 2 days ago and had lab work and a CAT scan that showed no acute abnormalities other than a mild leukocytosis. She is unsure of the cause. Her pain got worse tonight. She has had pain with her periods in the past. She states that usually does not hurt this bad though. She has an appointment with her MARKETING PRODUCTION COORDINATOR tomorrow. No vaginal discharge. No urinary symptoms. <Dickson Stevenson - Last Filed: 11/07/18 04:30> <Clive Balderas - Last Filed: 11/07/18 09:07> Chief Complaint: Abd Pain - Past Medical History (1) Chest pain Status: Acute (2) Gastroenteritis Status: Acute (3) Hypokalemia Status: Acute (4) Menorrhagia Status: Acute <Dickson Stevenson - Last Filed: 11/07/18 04:30> Past Medical History Prior records reviewed: Yes Surgical History: appendectomy Lives: Spouse/ Significant Other Smoking Status: Never smoker Alcohol: None Drugs: None - Family History Maternal Family History: Reports: Diabetes Paternal Family History: Reports: Diabetes, Heart Disease - Father of a massive heart attack at age 56 <Dickson Stevenson - Last Filed: 11/07/18 04:30> <Clive Balderas - Last Filed: 11/07/18 09:07> - Allergies and Home Meds Allergies/Adverse Reactions: Allergies atropine [From ] Allergy (Verified 11/07/18 03:19) Hives erythromycin base Allergy (Verified 11/07/18 03:19) Hives hyoscyamine [From ] Allergy (Verified 11/07/18 03:19) Hives Penicillins [PCN] Allergy (Verified 11/07/18 03:19) Unknown phenobarbital [From ] Allergy (Verified 11/07/18 03:19) Hives scopolamine [From ] Allergy (Verified 11/07/18 03:19) Hives Primary Care Physician: Care Physician,No Primary [Primary Care Provider] - Review of Systems General: Denies: Chills, Fever, Sweats Eyes: Denies: Visual changes - bilaterally, Diplopia ENT: Denies: Rhinorrhea, Sore throat Cardiovascular: Denies: Chest pain, Palpitations Respiratory: Denies: Dyspnea, Cough, Dyspnea on exertion Gastrointestinal: Reports: Abdominal pain. Denies: Nausea, Vomiting, Diarrhea, Melena, Hematochezia Genitourinary: Denies: Dysuria, Hematuria, Frequency Musculoskeletal: Denies: Back pain, Extremity Pain Skin: Denies: Rash, Wounds Neurological: Denies: Headache, Weakness, Numbness <Dickson Stevenson - Last Filed: 11/07/18 04:30> Physical Exam Vital Signs/Narrative: Vital Signs Temp Pulse Resp BP Pulse Ox 11/07/18 03:14 98.2 F 91 16 163/81 H 98 General: Well nourished, Well developed, No Acute Distress Head: Normocephalic, Atraumatic Eyes: Perrl, EOMI ENT: Moist mucous membranes, No rhinorrhea Neck: Supple, Nontender Cardiovascular: Regular rate, Regular rhythm, No murmurs Respiratory: No distress, CTA bilaterally, Chest nontender Abdomen: Soft, Nondistended, Normal bowel sounds, Tender - Mild diffuse lower abdominal tenderness. Negative for: Nontender, Guarding, Rebound tenderness, Acevedo's sign Back: Nontender, Normal Inspection Extremities: Nontender, No edema Skin: Normal color, No rash Neurological: Alert, Oriented x3, Cranial nerves II-XII grossly intact, Normal Strength, Normal Sensation Psychological: Normal affect, Normal Mood <Dickson Stevenson - Last Filed: 11/07/18 04:30> Vital Signs/Narrative: Vital Signs Pulse Resp BP Pulse Ox 11/07/18 07:32 74 18 132/70 H 100 11/07/18 05:14 76 16 129/76 H 96 <Clive Balderas - Last Filed: 11/07/18 09:07> Diagnostic/Tx/Re-eval - Medical Decision Making Patient has isolated tenderness over lower abdomen diffusely. Patient given IV fluids and a dose of fentanyl. Lab work obtained lab work was unremarkable. Including urine analysis. Patient did feel better after treatment but still has some lower abdominal pain. She is concerned that this may be secondary to ovarian cyst that she has had them before. This could be her menses related pain although her menses are very mild now with her bleeding although this could be menses related pains from cramping. She asked if I could order her an ultrasound prior to her MARKETING PRODUCTION COORDINATOR appointment today she has an appointment at 10 AM. I feel this is reasonable. She will undergo an ultrasound which will be signed out to the a.m. physician for further evaluation. Further disposition is pending. <Dickson Stevenson - Last Filed: 11/07/18 04:30> - Medical Decision Making Patient was turned over to me pending ultrasound results. Ultrasound showed an enlarged uterine fibroid and thickened endometrium. There is a dilated right fallopian tube. There is no other acute abnormality noted. She felt better on reevaluation. Patient was instructed to follow-up with her MARKETING PRODUCTION COORDINATOR in 3 to 5 days. Patient understood and was agreeable with the plan. All questions were answered. <Clive Balderas - Last Filed: 11/07/18 09:07> ED Disposition <Dickson Stevenson - Last Filed: 11/07/18 04:30> <Clive Balderas - Last Filed: 11/07/18 09:07> - Plan for ED Patient: Disposition: Home or Assisted Living Diagnosis: Fibroid uterus Instructions: ED Pelvic Pain UKO, ED Fibroids Referrals: Care Physician,No Primary [Primary Care Provider] - Additional Instructions: Follow-up with your MARKETING PRODUCTION COORDINATOR in 3 to 5 days.
--- NOTE | 2018-11-07 03:34 | ED.DCSUM_ITS ---
History of Present Illness Informant: Patient Narrative: Stated for the last 3 days she has had lower abdominal pain. She describes it as sharp and cramping. It is continuous and waxes and wanes. It is in her diffuse lower abdomen. She stated she is on her period currently. She has had 3 days of mild spotting. She had a uterine ablation done last April and started having spotting symptoms in August 3 days/month. She denies any nausea vomiting or diarrhea. Normal bowel movement schedule. She was seen in the emergency department 2 days ago and had lab work and a CAT scan that showed no acute abnormalities other than a mild leukocytosis. She is unsure of the cause. Her pain got worse tonight. She has had pain with her periods in the past. She states that usually does not hurt this bad though. She has an appointment with her PUBLIC HEALTH TRAINING ASSISTANT tomorrow. No vaginal discharge. No urinary symptoms. <Dickson Stevenson - Last Filed: 11/07/18 04:30> <Clive Balderas - Last Filed: 11/07/18 09:07> Chief Complaint: Abd Pain - Past Medical History (1) Chest pain Status: Acute (2) Gastroenteritis Status: Acute (3) Hypokalemia Status: Acute (4) Menorrhagia Status: Acute <Dickson Stevenson - Last Filed: 11/07/18 04:30> Past Medical History Prior records reviewed: Yes Surgical History: appendectomy Lives: Spouse/ Significant Other Smoking Status: Never smoker Alcohol: None Drugs: None - Family History Maternal Family History: Reports: Diabetes Paternal Family History: Reports: Diabetes, Heart Disease - Father of a massive heart attack at age 56 <Dickson Stevenson - Last Filed: 11/07/18 04:30> <Clive Balderas - Last Filed: 11/07/18 09:07> - Allergies and Home Meds Allergies/Adverse Reactions: Allergies atropine [From ] Allergy (Verified 11/07/18 03:19) Hives erythromycin base Allergy (Verified 11/07/18 03:19) Hives hyoscyamine [From ] Allergy (Verified 11/07/18 03:19) Hives Penicillins [PCN] Allergy (Verified 11/07/18 03:19) Unknown phenobarbital [From ] Allergy (Verified 11/07/18 03:19) Hives scopolamine [From ] Allergy (Verified 11/07/18 03:19) Hives Primary Care Physician: Care Physician,No Primary [Primary Care Provider] - Review of Systems General: Denies: Chills, Fever, Sweats Eyes: Denies: Visual changes - bilaterally, Diplopia ENT: Denies: Rhinorrhea, Sore throat Cardiovascular: Denies: Chest pain, Palpitations Respiratory: Denies: Dyspnea, Cough, Dyspnea on exertion Gastrointestinal: Reports: Abdominal pain. Denies: Nausea, Vomiting, Diarrhea, Melena, Hematochezia Genitourinary: Denies: Dysuria, Hematuria, Frequency Musculoskeletal: Denies: Back pain, Extremity Pain Skin: Denies: Rash, Wounds Neurological: Denies: Headache, Weakness, Numbness <Dickson Stevenson - Last Filed: 11/07/18 04:30> Physical Exam Vital Signs/Narrative: Vital Signs Temp Pulse Resp BP Pulse Ox 11/07/18 03:14 98.2 F 91 16 163/81 H 98 General: Well nourished, Well developed, No Acute Distress Head: Normocephalic, Atraumatic Eyes: Perrl, EOMI ENT: Moist mucous membranes, No rhinorrhea Neck: Supple, Nontender Cardiovascular: Regular rate, Regular rhythm, No murmurs Respiratory: No distress, CTA bilaterally, Chest nontender Abdomen: Soft, Nondistended, Normal bowel sounds, Tender - Mild diffuse lower abdominal tenderness. Negative for: Nontender, Guarding, Rebound tenderness, Acevedo's sign Back: Nontender, Normal Inspection Extremities: Nontender, No edema Skin: Normal color, No rash Neurological: Alert, Oriented x3, Cranial nerves II-XII grossly intact, Normal Strength, Normal Sensation Psychological: Normal affect, Normal Mood <Dickson Stevenson - Last Filed: 11/07/18 04:30> Vital Signs/Narrative: Vital Signs Pulse Resp BP Pulse Ox 11/07/18 07:32 74 18 132/70 H 100 11/07/18 05:14 76 16 129/76 H 96 <Clive Balderas - Last Filed: 11/07/18 09:07> Diagnostic/Tx/Re-eval - Medical Decision Making Patient has isolated tenderness over lower abdomen diffusely. Patient given IV fluids and a dose of fentanyl. Lab work obtained lab work was unremarkable. Including urine analysis. Patient did feel better after treatment but still has some lower abdominal pain. She is concerned that this may be secondary to ovarian cyst that she has had them before. This could be her menses related pain although her menses are very mild now with her bleeding although this could be menses related pains from cramping. She asked if I could order her an ultrasound prior to her PUBLIC HEALTH TRAINING ASSISTANT appointment today she has an appointment at 10 AM. I feel this is reasonable. She will undergo an ultrasound which will be signed out to the a.m. physician for further evaluation. Further disposition is pending. <Dickson Stevenson - Last Filed: 11/07/18 04:30> - Medical Decision Making Patient was turned over to me pending ultrasound results. Ultrasound showed an enlarged uterine fibroid and thickened endometrium. There is a dilated right fallopian tube. There is no other acute abnormality noted. She felt better on reevaluation. Patient was instructed to follow-up with her PUBLIC HEALTH TRAINING ASSISTANT in 3 to 5 days. Patient understood and was agreeable with the plan. All questions were answered. <Clive Balderas - Last Filed: 11/07/18 09:07> ED Disposition <Dickson Stevenson - Last Filed: 11/07/18 04:30> <Clive Balderas - Last Filed: 11/07/18 09:07> - Plan for ED Patient: Disposition: Home or Assisted Living Diagnosis: Fibroid uterus Instructions: ED Pelvic Pain [facility], ED Fibroids Referrals: Care Physician,No Primary [Primary Care Provider] - Additional Instructions: Follow-up with your PUBLIC HEALTH TRAINING ASSISTANT in 3 to 5 days.
[2018-11-07 03:48] LABS: Absolute Lymphocyte Count 2.35 X10^3/ul (0.83-4.51); Absolute Neutrophil Count 4.8 X10^3/uL (2.0-7.7); Basophil# 0.02 X10^3/uL; Basophil% 0.2 % (0-1); Eosinophil# 0.27 X10^3/uL; Eosinophils% 3.3 % (0-5); Hematocrit 38.1 % (37-47); Hemoglobin 12.7 g/dl (12.0-15.0); Lymphocyte # 2.35 X10^3/ul (4.0); Lymphocyte % 28.6 % (19-41); Mean Corp Hgb Conc 33.3 g/gl (32-36); Mean Corpuscular Hgb 30.5 pg (27.0-32.0); Mean Corpuscular Volume 91.6 fL (81-99); Mean Platelet Vol. 9.5 fl (6.2-12.0); Monocyte# 0.75 X10^3/uL; Monocyte% 9.1 % (0-10); Neutrophil # 4.81 X10^3/uL (2.7-7.7); Neutrophil % 58.7 % (47-70); Platelet Count 274 K/mm3 (150-450); RBC Distribution Width CV 12.7 % (11.6-14.6); RBC Distribution Width SD 41.4 fl (35.1-43.9); Red Blood Count 4.16 M/mm3 (4.2-5.4); White Blood Count 8.2 K/mm3 (4.4-11.0)
[2018-11-07 03:49] LABS: Bacteria 0 SEEN /hpf (None Seen); Mucous, Urine 0 SEEN /hpf (<or=2+)
[2018-11-07] MEDS: fentaNYL 100 MCG/2 ML Ampul 50 MCG IV ×2 (03:49→05:20)
[2018-11-07] MEDS: 0.9% Normal Saline 1,000 ML 1000 ML IV (03:49)
[2018-11-07 03:51] LABS: Color, Urine Yellow (Yellow); Glucose, Dipstick Normal (Normal); Ketone-Dipstick 5 mg/dl (Negative); Leukocyte Esterase-Dipstick 25 /ul (Negative); Nitrite-Dipstick Negative (Negative); Occult Blood-Urine 150 /ul (Negative); Protein-Dipstick 15 mg/dl (Negative); Urine Bilirubin Dipstick Negative (Negative); Urine Clarity Clear (Clear); Urine Urobilinogen 1 mg/dl (Normal); Urine pH 6.5 (5.0 - 8.0)
[2018-11-07 03:58] LABS: Internal QC Validated? YES +Cl - CLEAR BKGD; POSITIVE COUNT NO; POSITIVE DIFFERENTIAL NO; POSITIVE MORPHOLOGY NO; Pregnancy, Serum, hCG Quali. NEGATIVE Negative
[2018-11-07 04:00] LABS: Red Blood Cells-Urine 0-5 SEEN /hpf (0-5); Squamous Epithelial Cells - UA 5-10 SEEN /hpf (5-10); White Blood Cells 5-10 SEEN /hpf (0-5)
[2018-11-07 04:04] LABS: Anion Gap 8 (5-15); BUN 12 mg/dL (7-18); BUN/Creat Ratio 13.7 RATIO (10-20); Calcium,Total 8.2 mg/dL (8.5-10.1); Chloride 109 mmol/L (98-107); Creatinine, Serum 0.88 mg/dL (0.55-1.02); EST Glomerular Filtration Rate 73 mL/min (>60); Est Glom Filt Rate - Afr Amer 89 mL/min (>60); Estimated Creatinine Clearance 71.12 ml/min; Glucose 125 mg/dL (74-106); Potassium 3.6 mmol/L (3.5-5.1); Sodium Level 143 mmol/L (136-145)
[2018-11-07 05:14] VITALS: BP 129/76; PULSE 76; RESP 16; O2SAT 96
--- NOTE | 2018-11-07 07:30 | US_ITS ---
STUDY: ULTRASOUND OF THE FEMALE PELVIS - COMPLETE REASON FOR EXAM: Female, 48 years old. 3 day history of lower abdominal pain. Negative test. LMP: November 03, 2018. TECHNIQUE: Transvaginal TECHNICAL QUALITY: Adequate. COMPARISON: Comparison is made with prior CT scan of the abdomen and pelvis dated November 05, 2018. FINDINGS: The uterus is anteverted and is in a midline position. The uterus is enlarged and measures 10.8 cm x 7.4 cm x 6.2 cm. There is a Nabothian cyst of the cervix. The endometrium is thickened and measures 26 mm in thickness, and is hyperechoic. There is no demonstrated endometrial mass. There is a 1.5 cm x 1.6 cm x 1.3 cm fundal fibroid. I.U.D. - The patient does not have an I.U.D. The right ovary is visualized. The right ovary measures 3.8 cm x 2.5 cm x 2.0 within it, there is a dominant follicle measuring 1.8 cm x 1.4 cm x 1.2 cm. cm. Adjacent to the right ovary, there is a 2.5 cm x 1.4 cm x 1.1 cm longitudinal hypoechoic density suggestive of possible dilated right fallopian tube. There is no visualized right adnexal mass or complex lesion. There is normal arterial and normal venous vascularity. The left ovary is visualized. The left ovary measures 2.8 cm x 3.5 cm x 1.9 cm. There is no left ovarian cyst or ovarian mass. There is no visualized left adnexal mass or complex lesion. There is normal arterial and normal venous vascularity. There is no fluid in the cul-de-sac. Polycystic ovary disease: No. US/Transvaginal Non- IMPRESSION: Enlarged fibroid uterus with thickening of the endometrium measuring 26 mm. Dominant right ovarian follicle. Findings suggestive of a dilated right fallopian tube. Electronically Signed: Mehran Novak, at 8:54 EDT , Service support ,
[2018-11-07 07:32] VITALS: BP 132/70; PULSE 74; RESP 18; O2SAT 100
[2018-11-07 09:00] VITALS: BP 160/82; PULSE 86; RESP 16; O2SAT 100
[2018-11-07 09:13] VITALS: BP 108/74; PULSE 62; RESP 15; O2SAT 98
== END 2018-11-07 09:14 | disposition home or self-care (01) ==
PROVIDERS: Emergency Provider Emergency Medicine
DX: D25.9 Leiomyoma of uterus, unspecified (principal); R93.89 Abnormal findings on diagnostic imaging of other specified body structures
CPT/HCPCS: 76830; 80048; 81001; 84703; 85025; 96361; 96374; 96376; 99283; J7030; A4216

== ENCOUNTER 2018-11-23 11:28 | Observation (INO) | payer BC, SELFPAY ==
--- NOTE | 2018-11-18 10:34 | EKG12_ITS ---
Test Reason : PRE-OP Blood Pressure : / mmHG Vent. Rate : 070 BPM Atrial Rate : 070 BPM P-R Int : 122 ms QRS Dur : 088 ms QT Int : 426 ms P-R-T Axes : 181 174 125 degrees QTc Int : 460 ms Suspect arm lead reversal, interpretation assumes no reversal Unusual P axis, possible ectopic atrial rhythm Right axis deviation Abnormal ECG Confirmed by VERONICA BEST, KAE ([id number]), food editor EZEQUIEL ROCHE ([id number]) on 11/22/2018 11:54:42 AM Referred By: Sasha Baker Confirmed By:KAE MARTIN MD
--- NOTE | 2018-11-22 07:48 | HP.PCM_ITS ---
- Problem List (1) Pelvic pain Status: Acute (2) History of endometrial ablation Status: Acute History Date of Admission: 11/23/18 History of this : This is a 48 year-old who presents with pelvic cramping and pain. S/p endometrial ablation. H/o tubal ligation in the past. Her cramping is constant and daily, made worse when on her period. She presented to the ED twice for this pain and had a CTAP that was non-acute. She had follow up with a PCP as well for a second opinion to determine if there is a GI source of this pain. Surgical History: Surgical History (Last Updated 11/22/18 @ 07:46 by Sasha Baker DO) History of appendectomy Z90.49 History of ovarian cystectomy Z98.890, Z87.42 History of surgical removal of ganglion cyst Z98.890 History of tubal ligation Z98.51 Allergies atropine [From ] Allergy (Verified 11/16/18 08:59) Hives erythromycin base Allergy (Verified 11/16/18 08:59) Hives hyoscyamine [From ] Allergy (Verified 11/16/18 08:59) Hives Penicillins [PCN] Allergy (Verified 11/16/18 08:59) Unknown phenobarbital [From ] Allergy (Verified 11/16/18 08:59) Hives scopolamine [From ] Allergy (Verified 11/16/18 08:59) Hives Home Medications: Home Medications Ibuprofen 800 mg PO Q8H PRN PRN 11/16/18 Smoking Status: Never smoker Alcohol: None History Past Pregnancies: Past Pregnancies Delivery Date Name GA/Weeks Outcome Route Weight Gender Labor Length Anesthesia Delivery Location Provider FOB Review of Systems Constitutional: Denies: Chills, Fever, Malaise Eyes: Denies: Blurred vision HEENT: Denies: Head Aches Cardiovascular: Denies: Chest Pain Respiratory: Denies: Cough, Shortness of Breath Gastrointestinal: Reports: Abdominal Pain. Denies: Constipation, Diarrhea, Dyspepsia, Nausea, Melena, Vomiting Genitourinary: Denies: Dysuria, Frequency, Hematuria, Hesitancy Gynecological: Reports: Vaginal bleeding. Denies: Vaginal discharge, Vaginal itching Skin: Denies: Lesions, Rash Neurological: Denies: Blurred vision, Confusion, Headaches Hematologic/ Lymphatic: Denies: Easy Bruising, Easy Bleeding Physical Exam General: Alert, No apparent distress HEENT: Atraumatic Cardiovascular: Regular rate Lungs: Clear to auscultation Abdomen: Soft, Non-Distended, Tender, - - No gaurding, rebounding, rigidity Extremities:: No edema Neurological: Neuro grossly intact COLOR CHECKER ROVING OR YARN: Normal external genitalia Assessment/Plan All Active Problems Menorrhagia (Acute) Gastroenteritis (Acute) Hypokalemia (Acute) Chest pain (Acute) Pelvic pain (Acute) History of endometrial ablation (Acute) This is a 48 year-old who presents with constant pelvic cramping and pain. S/p endometrial ablation and h/o prior tubal sterilization. Was evaluated by PCP as well to r/o GI cause for the pain. 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 Discussed r/b/a of ROBERT, BS, cysto, possible oophorectomy, possible laparotomy and patient consented. Patient desires to proceed with a hysterectomy and understands that it may not improve her pain. To proceed with hysterectomy as planned.
--- NOTE | 2018-11-22 15:46 | EKG12_ITS ---
Test Reason : PRE OP Blood Pressure : / mmHG Vent. Rate : 088 BPM Atrial Rate : 088 BPM P-R Int : 122 ms QRS Dur : 088 ms QT Int : 390 ms P-R-T Axes : 038 035 038 degrees QTc Int : 471 ms Normal sinus rhythm Incomplete right bundle branch block Cannot rule out Anterior infarct , age undetermined Abnormal ECG Confirmed by NISSA BEST, NORMA ([id number]), supervising film or videotape editor EZEQUIEL ROCHE ([id number]) on 11/27/2018 3:03:08 PM Referred By: Sasha Baker Confirmed By:NORMA AZAR MD
[2018-11-23] VITALS (17 sets, daily range): BP systolic 99–149; BP diastolic 59–79; PULSE 66–93; RESP 16–18; TEMP 36.3–37.3; O2SAT 93–100; BMI 32.6
[2018-11-23] MEDS: Acetaminophen 500 MG Tablet 1000 MG PO ×2 (08:05→18:13)
[2018-11-23] MEDS: Enoxaparin 40 MG/0.4 ML Syringe SC (08:05)
[2018-11-23] MEDS: Celecoxib 200 MG Capsule 400 MG PO (08:06)
[2018-11-23] MEDS: Gabapentin 600 MG Tablet PO (08:06)
[2018-11-23] MEDS: Phenazopyridine 95 MG Tablet 190 MG PO (08:06)
[2018-11-23 08:16] LABS: Bedside Glucose 86 mg/dL (70-110)
[2018-11-23] MEDS: Lactated Ringers 1,000 ML 40 ML IV (08:21)
[2018-11-23] MEDS: Magnesium Sulfate 4gm/100mL 4 GM/100 ML IV.SOLN. IV (08:22)
[2018-11-23] MEDS: dexAMETHasone 10 MG/ML Vial 8 MG IV (08:22)
--- NOTE | 2018-11-23 09:05 | HYST_PTH ---
PATIENT: ELTON LEDESMA LOC: [facility] U#:[id number] AGE/SX: 48/F ROOM: [facility]320 RE11/23/[address]: Dr. Sasha Baker DO : 1970 BED: 1 DIS: 11/24/2018 SPEC #: [id number] RECD: 11/23/18 13:42 STATUS: KVNG REAda #: [id number] LINDSEY: 11/23/18 09:[address]: Sasha Baker DEPT: SURGICAL PATHOLOGY RECD BY: Lavon Patino ENTERED: 11/23/18 14:29 SP TYPE: HYSTERECT OTHR DR: Dr. Clive Roque MD No Primary Care Phys Tissues: Uterus, NOS Procedures: Surgery Specimen Level V HEADER OPERATION: ERAS, hysterectomy, lap-assisted vaginal, bilateral salpingectomy PRE-OP DIAGNOSIS: Menorrhagia, pelvic pain TISSUE SUBMITTED: Uterus and bilateral fallopian tubes MICROSCOPIC DIAGNOSIS Uterus, hysterectomy: Cervix - nabothian cysts and mild chronic inflammation. Endometrium - proliferative endometrium. Myometrium - adenomyosis. Right fallopian tube - no pathologic change. Left fallopian tube - no pathologic change. AM:natali 11/24/18 MICROSCOPIC DESCRIPTION Slides are reviewed. GROSS DESCRIPTION Received in fixative is one container labeled with the patient's name and designated uterus. The specimen consists of a uterus with attached cervix and attached right and left fallopian tubes. The uterus with cervix measures 11.5 x 8 x 6 cm and weighs 83 gm. The ectocervix is grossly unremarkable. The cervical os is oval in contour. The endocervical canal measures 4.5 cm in length and is grossly unremarkable. The triangular endometrial cavity measures 4 x 3.5 cm. The endometrium measures up to 0.2 cm in thickness and is reddish-mosqueda in color. The right and left fallopian tubes are similar in appearance with average lengths of 6.5 cm and maximal diameters of 0.7 cm. Both fimbriated ends have a normal villous appearance. Web Art Director sections are submitted as follows: 1 - anterior cervix, 2 - posterior cervix, 3-5 - anterior uterine wall, 6 & 7 - posterior uterine wall, 8 - right fallopian tube, 9 - left fallopian tube. / AM:natali 11/23/18 TC:5 CPT: 97301
[2018-11-23] MEDS: Bupivacaine Mpf 0.5% 30 ML VIAL (11:10)
--- NOTE | 2018-11-23 11:31 | PCM.OPRPT ---
Problem List (1) Pelvic pain Status: Acute (2) History of endometrial ablation Status: Acute Report of Operation Date of Procedure: 11/23/18 Pre-Operative Diagnosis: H/o uterine ablation, pelvic pain and cramping Post-Operative Diagnosis: As above Surgery/Procedure Performed:: LAVH, BS, cystoscopy Description of Surgical Findings:: Enlarged and boggy uterus. A single endometriosis lesion < 0.5 cm in size on right fallopian tube. No other endometriosis noted. Otherwise normal appearing adnexa, bilateral ovarian fossa, and pelvic CDS. Normal appearing liver edge and gallbladder disabilities caregiver: Chelsie Gaines Type of Anesthesia:: General Specimen's removed: Uterus, cervix, bilateral fallopian tubes Drains: Keller Estimated Blood Loss (mL): 200 Fluids Replaced: 1800 Description of Procedure: Patient prepped and draped in usual sterile fashion in dorsal lithotomy position under general anesthesia. A weighted speculum was placed to expose the cervix. A single tooth tenaculum was placed on the anterior lip of the cervix and a Radha cannula was placed for uterine manipulation. A keller catheter was placed. Gloves were then changed and attention turned to the abdominal portion of the case. A 5 mm infraumbilical port was placed under direct visualization with the camera. Once confirmed intraperitoneal, the abdomen was insufflated. Findings noted as above. A 5 mm left lateral port was placed. A 5 mm right lateral port was placed. The left fallopian tube, uteroovarian ligament and round ligament was cauterized and transected. The remainder of the cardinal ligament, uterine vessels, anterior and posterior sheaths of the broad ligament were cauterized and transected in a serial manner to the uterine artery. The bladder flap was started. The uterine artery was cauterized. The same was performed on the right side to the level of the uterine artery, and the right uterine artery was cauterized. The bladder flap was finished. At this time the laparoscope was removed, and attention was turned to the vaginal portion of the case. The Radha cannula was removed. A circumferential incision was made at the cervicovaginal junction. Anterior and posterior colpotomies were made. The right uterosacral ligament was clamped, cut, and suture ligated. The left uterosacral ligament was clamped, cut, and suture ligated. Several additional clamps were placed bilaterally along the cardinal ligaments, which were cut and suture ligated. The uterus was removed. A Lazo's culdoplasty was performed. The vaginal cuff was closed in an interrupted fashion using several [id number]-in-[id number] sutures. A cystoscopy was performed noting a normal appearing bladder, and good bilateral ureteral jets. All instruments were removed from the vagina. Gloves were then changed and attention was turned to the abdominal portion of the case. The abdomen was insufflated and the pelvis was inspected and hemostasis was noted. The camera and ports were then removed. The port sites were closed with monocryl and dermabond was placed over the incisions. Instrument counts were correct. The patient tolerated the procedure well and was taken to recovery room in stable condition. Grafts/Implants Used: None - Complications None - Admit VTE Documentation VTE Present on Admission: No VTE Mechan Device Prophylaxis: SCD's VTE Pharm Prophylaxis ordered?: Yes
[2018-11-23] MEDS: Ondansetron 4 MG/2 ML Vial IV (12:39)
[2018-11-23] MEDS: Lactated Ringers 1,000 ML 70 ML IV (13:36)
[2018-11-23] MEDS: Ketorolac 30 MG/ML Syringe IV ×2 (13:36→18:14)
[2018-11-23] MEDS: oxyCODONE 5 MG Tablet PO (18:46)
[2018-11-23] MEDS: Magnesium Oxide 400 MG Tablet PO (18:46)
[2018-11-23] MEDS: Docusate Sodium 100 MG Capsule PO (21:45)
[2018-11-24] MEDS: Ketorolac 30 MG/ML Syringe IV ×2 (00:10→06:27)
[2018-11-24] MEDS: Acetaminophen 500 MG Tablet 1000 MG PO ×3 (00:10→11:59)
[2018-11-24] MEDS: oxyCODONE 5 MG Tablet PO (02:53)
[2018-11-24] MEDS: Lactated Ringers 1,000 ML 70 ML IV (02:54)
[2018-11-24 05:00] VITALS: BP 111/60; PULSE 81; RESP 16; TEMP 36.8; O2SAT 95
[2018-11-24 06:12] LABS: Hematocrit 33.2 % (37-47); Hemoglobin 9.2 g/dl (12.0-15.0); Mean Corp Hgb Conc 27.7 g/gl (32-36); Mean Corpuscular Hgb 25.4 pg (27.0-32.0); Mean Corpuscular Volume 91.7 fL (81-99); Mean Platelet Vol. 9.7 fl (6.2-12.0); Platelet Count 281 K/mm3 (150-450); RBC Distribution Width CV 12.6 % (11.6-14.6); RBC Distribution Width SD 40.8 fl (35.1-43.9); Red Blood Count 3.62 M/mm3 (4.2-5.4); White Blood Count 13.9 K/mm3 (4.4-11.0)
[2018-11-24 06:16] LABS: Scan Indicated on CBC? Y/N NO
[2018-11-24 08:02] VITALS: O2SAT 91
--- NOTE | 2018-11-24 08:39 | PCM.PN.OB ---
Subjective: Patient doing well. Ronnell reg diet without n/v. Ambulating to chair and back. +Spont void without difficulty. Pain controlled. Denies lightheadedness, dizziness, CP, SOB, leg pain. She has no complaints - Physical Exam General: Alert, No apparent distress HEENT: Atraumatic Lungs: Normal air movement Abdomen: Soft, Non-Distended, - - ATTP, incisions c/d/i Extremities: No edema, No Calf Tenderness Skin: No rashes Neurological: Neuro grossly intact Psych/Mental Status: Normal Affect, Appropriate Vital Signs Temp Pulse Resp BP Pulse Ox 98.3 F 81 16 111/60 95 11/24/18 05:00 11/24/18 05:00 11/24/18 05:00 11/24/18 05:00 11/24/18 05:00 Oxygen Flow Rate (L/min) 1.5 Oxygen Delivery Method Room Air Weight: 167 lb 1.766 oz Body Mass Index (BMI) 32.6 Intake and Output for Last 24 Hours 11/22/18 11/23/18 11/24/18 23:59 23:59 23:59 Intake Total 1999 / 1999 1538 / 1538 Output Total 475 / 475 700 / 700 Balance 1525 / 1525 838 / 838 Laboratory Tests Past 24 Hrs 11/23/18 11/24/18 07:52 05:45 WBC 13.9 H RBC 3.62 L Hgb 9.2 L Hct 33.2 L MCV 91.7 MCH 25.4 L MCHC 27.7 L RDW 12.6 RDW Differential 40.8 Plt Count 281 MPV 9.7 Blood Type A NEGATIVE Antibody Screen NEGATIVE Medical Necessity - Tobacco Use Smoking Status: Never smoker Assessment/Plan All Active Problems (Last Updated 11/22/18 @ 07:46 by Sasha Baker DO) Menorrhagia (Acute) Gastroenteritis (Acute) Hypokalemia (Acute) Chest pain (Acute) Pelvic pain (Acute) History of endometrial ablation (Acute) POD#1 s/p ROBERT, BS, cysto - Pt doing well - Discussed surgical findings with pt - Encouraged more ambulation today prior to discharge home - Dispo: D/c home today. Discharge instructions reviewed
--- NOTE | 2018-11-24 08:41 | PCM.DC ---
You will use the following diet at home:: No restrictions, Regular Discharge Activity: May not drive while taking narcotic pain medications., May Shower May resume sexual activity in: 6-8 weeks Weight Bearing Status: Weight bearing as tolerated Lifting Restrictions: No heavy lifting > 20 pounds Call your doctor if your incision/area has: Sudden Increased Bleeding, Increased Pain/ Swelling, Increased Redness, Foul Smelling Discharge, Swelling at the incision site Call your doctor if you observe: Fever of 101 or Higher, Inability to urinate, Inability to have a bowel movement, Using more than one pad per hour, Shortness of breath, Dizziness, Fainting spells, Chest pain, Increased palpitations (irregular heartbeat), Calf discomfort, Uncontrolled pain Suture Line Care: Avoid Pulling/Pushing, Avoid Pinching/Bending Cleanse incision/area with: Soap & Water Allergies/Adverse Reactions: Allergies atropine [From ] Allergy (Verified 11/16/18 08:59) Hives erythromycin base Allergy (Verified 11/16/18 08:59) Hives hyoscyamine [From ] Allergy (Verified 11/16/18 08:59) Hives Penicillins [PCN] Allergy (Verified 11/16/18 08:59) Unknown phenobarbital [From ] Allergy (Verified 11/16/18 08:59) Hives scopolamine [From ] Allergy (Verified 11/16/18 08:59) Hives Medications to take at Discharge Ibuprofen 800 mg PO Q8H PRN PRN 11/16/18 Orders to be completed after discharge: 12 Lead EKG [CVS] Time Frame: 11/22/18, Facility: [facility], Location: Cardiovascular Services 12 Lead EKG [CVS] Time Frame: 11/16/18, Facility: [facility], Location: Cardiovascular Services Primary Care Physician: Care Physician,No Primary [Primary Care Provider] - Test Results: Test results from this visit will be discussed in further detail at your follow-up appointment, if applicable. Please Follow Up With: Sasha Baker DO Proposed Discharge Date: 11/24/18
[2018-11-24] MEDS: Enoxaparin 40 MG/0.4 ML Syringe SC (09:02)
[2018-11-24] MEDS: Docusate Sodium 100 MG Capsule PO (09:02)
[2018-11-24 10:29] VITALS: BP 91/55; PULSE 67; RESP 18; TEMP 36.9; O2SAT 95
[2018-11-24] MEDS: Lactated Ringers 1,000 ML 999 ML IV (11:58)
[2018-11-24] MEDS: 0.9% NaCl Peripheral Flush Adult/Peds IV (11:59)
[2018-11-24 12:18] LABS: Absolute Lymphocyte Count 1.66 X10^3/ul (0.83-4.51); Absolute Neutrophil Count 12.8 X10^3/uL (2.0-7.7); Hematocrit 33.2 % (37-47); Hemoglobin 10.9 g/dl (12.0-15.0); Lymphocyte # 1.66 X10^3/ul (4.0); Lymphocyte % 10.5 % (19-41); Mean Corp Hgb Conc 32.8 g/gl (32-36); Mean Corpuscular Hgb 30.2 pg (27.0-32.0); Mean Platelet Vol. 9.2 fl (6.2-12.0); Monocyte# 1.27 X10^3/uL; Monocyte% 8.1 % (0-10); Neutrophil # 12.79 X10^3/uL (2.7-7.7); Neutrophil % 81.2 % (47-70); Platelet Count 257 K/mm3 (150-450); RBC Distribution Width CV 12.8 % (11.6-14.6); RBC Distribution Width SD 43.1 fl (35.1-43.9); Red Blood Count 3.61 M/mm3 (4.2-5.4); White Blood Count 15.8 K/mm3 (4.4-11.0)
[2018-11-24 12:22] LABS: POSITIVE COUNT NO; POSITIVE DIFFERENTIAL NO; POSITIVE MORPHOLOGY NO
[2018-11-24 12:51] VITALS: BP 117/59; PULSE 71
[2018-11-24 15:24] VITALS: BP 110/61; PULSE 75; RESP 18; TEMP 36.8; O2SAT 95
== END 2018-11-24 15:40 | disposition home or self-care (01) ==
LOC: SDC 12:08 → MS3 11-24 06:16
PROVIDERS: Admitting Provider Obstetrics & Gynecology; Referring Provider Obstetrics & Gynecology; Visit Provider Obstetrics & Gynecology
PROC: 0UT9FZZ Resection of Uterus, Via Natural or Artificial Opening With Percutaneous Endoscopic Assistance (ICD-10-PCS; CPT 58552; principal; 2018-11-23 08:40)
DX: N88.8 Other specified noninflammatory disorders of cervix uteri (principal); N80.0 Endometriosis of uterus
CPT/HCPCS: 00940; 58552; 36415; 82962; 85025; 85027; 86850; 86900; 88307; 93005; 94762; 96374; 96375; 96376; 99218; J7120; A4216; G0378; G0379; J2405

== ENCOUNTER → 2019-02-07 | Outpatient (CLI) | payer OTHER, SELFPAY ==
[2019-02-06 14:16] VITALS: BMI 32.4
== END | disposition home or self-care (01) ==
LOC: PSN 08:56
PROVIDERS: Family Provider Family Medicine; PCP Family Medicine; Referring Provider Specialist; Visit Provider Specialist
DX: R00.2 Palpitations (principal)
CPT/HCPCS: 93225; 93226

== ENCOUNTER → 2019-02-22 | Outpatient (CLI) | payer OTHER, SELFPAY ==
[2019-02-06 14:16] VITALS: BMI 32.4
--- NOTE | 2019-02-22 06:34 | ECHOD_ITS ---
Reason For Study: CP, SOB, DIZZINESS Procedure This was a 2D Doppler, Color Flow transthoracic echocardiogram. Exam performed in department. Left Ventricle Normal size and thickness. The estimated ejection fraction is 60 %. No evidence for diastolic dysfunction. No regional wall motion abnormalities noted. Right Ventricle Normal RV size. Normal systolic function. Atria Normal left atrium. Normal right atrium. No doppler evidence for ASD. Mitral Valve There is no mitral valve stenosis. No mitral valve insufficiency. Tricuspid Valve There is no tricuspid stenosis. Unable to estimate RV systolic pressure due to inadequate jet, pulmonary artery pressure probably normal. Aortic Valve Trisinus/trileaflet aortic valve. There is no aortic stenosis. No aortic valve insufficiency. Pulmonic Valve There is no pulmonic valvular stenosis. No pulmonic valve insufficiency. Great Vessels Normal aortic root. Pericardium/Pleural No pericardial effusion. Medication Performed a rapid injection of agitated mix of 9 cc saline and 1cc air to assess for atrial septal defect. MMode/2D Measurements & Calculations LVIDd: 4.4 cm IVSd: 0.70 cm Ao root diam: 2.9 cm LVIDs: 3.0 cm LVPWd: 0.90 cm RVDd: 3.0 cm FS: 30.9 % LAV(MOD-bp): 38.7 ml LVAd ap4: 24.6 cm2 SV(MOD-sp4): 45.6 ml LAV(MOD-bp) Indexed: 22.4 ml/m2 EDV(MOD-sp4): 70.5 ml LAV(MOD-sp2): 38.9 ml EDV(sp4-el): 72.2 ml LAV(MOD-sp4): 34.6 ml LVAs ap4: 13.6 cm2 ESV(MOD-sp4): 24.9 ml ESV(sp4-el): 26.1 ml EF(MOD-sp4): 64.7 % EF(sp4-el): 63.8 % SV(sp4-el): 46.1 ml LA A4 area: 14.9 cm2 LA dimension(2D): 3.6 cm RA A4 area: 11.0 cm2 Time Measurements MV dec time: 0.20 sec Doppler Measurements & Calculations MV E max bernabe: 108.5 cm/sec Lat Peak E' Bernabe: 12.5 cm/sec Med Peak E' Bernabe: 8.6 cm/sec MV A max bernabe: 82.1 cm/sec E/E' lat: 8.7 E/E' med: 12.6 MV E/A: 1.3 Ao V2 max: 129.8 cm/sec LV V1 max: 113.8 cm/sec PA V2 max: 90.4 cm/sec Ao max P.7 mmHg LV V1 max P.2 mmHg TR max bernabe: 268.5 cm/sec TR max P.8 mmHg Interpretation Summary The estimated ejection fraction is 60 %. No evidence for diastolic dysfunction. Ordering Physician: Amanda Navarro Referring Physician: VONDA BAILEY Performed By: Maria Guadalupe Mueller RDCS
--- NOTE | 2019-02-23 15:42 | STRESSREP_ITS ---
Stress Test Report Date: 02/22/2019 Procedure: Exercise tolerance test/imaging study Indications: [Chest pain] Consent: Per the patient Procedure: The patient exercised on a Jose protocol for 8 minutes achieving a peak heart rate of 157 bpm (90 % predicted maximal heart rate) with a peak blood pressure 168/84 mmHg and a peak MET capacity of 10.1 METs. The baseline ECG demonstrated normal sinus rhythm, nonspecific ST-T changes. The peak exercise ECG demonstrated sinus tachycardia with about [address] depressions in the inferior and lateral leads. EKG during recovery revealed no significant change from baseline [There were no cardiac dysrhythmias pretest, during exercise, or recovery]. The functional capacity was considered normal for age. Patient had chest discomfort with exercise that resolved in the recovery period. The examination was discontinued secondary to chest discomfort. Impression: 1. Technically adequate (percent predicted maximal heart rate greater than 85%) exercise tolerance test 2. Stress test is negative for exercise-induced EKG changes of ischemia 3. The test test is positive for exercise-induced chest pain 4. Functional capacity is normal for age 5. Nuclear images pending Myocardial perfusion imaging study: Technique: The patient was injected with 11.6 mCi of technetium 99m Cardiolite and subsequently rest SPECT Cardiolite nuclear imaging was obtained in the horizontal long, vertical long, and short axis views. The patient exercised on a Jose protocol. Please see above for details. The patient was injected with 33.7 mCi of technetium 99m Cardiolite and subsequently stress SPECT Cardiolite nuclear imaging was obtained in the horizontal long, vertical long, and short axis views. A gated Cardiolite study at peak stress was obtained. Interpretation: Rest and stress SPECT Cardiolite nuclear imaging status post realignment, normalization, and attenuation correction, demonstrates normal myocardial radioisotope uptake in both the rest and stress images. The gated Cardiolite study demonstrates no significant regional wall motion abnormalities. The reported LVEF is greater than 70 %. Impression: 1. There is no evidence of significant ischemia or infarction. 2. The gated Cardiolite study reports an LVEF of greater than 70 %. This note was generated with [employer] software. It may contain incorrect words, spelling, and punctuation that were not noted in checking the note before signing.
== END | disposition home or self-care (01) ==
PROVIDERS: Family Provider Family Medicine; PCP Family Medicine; Referring Provider Specialist; Visit Provider Specialist
DX: R07.9 Chest pain, unspecified (principal); R42 Dizziness and giddiness; R06.02 Shortness of breath
CPT/HCPCS: 78452; 93017; 93306; A9500; A4216

== ENCOUNTER → 2019-03-13 | Outpatient (CLI) | payer OTHER, SELFPAY ==
[2019-03-06 13:23] VITALS: BMI 32.4
[2019-03-13 13:12] LABS: Absolute Lymphocyte Count 2.67 X10^3/uL (0.83-4.51); Absolute Neutrophil Count 7.8 X10^3/uL (2.0-7.7); Basophil# 0.03 X10^3/uL; Basophil% 0.3 % (0-1); Eosinophil# 0.12 X10^3/uL; Eosinophils% 1.1 % (0-5); Hematocrit 41.3 % (37-47); Hemoglobin 13.6 g/dL (12.0-15.0); Lymphocyte # 2.67 X10^3/ul (4.0); Lymphocyte % 23.5 % (19-41); Mean Corp Hgb Conc 32.9 g/dL (32-36); Mean Corpuscular Hgb 29.6 pg (27.0-32.0); Mean Corpuscular Volume 89.8 fL (81-99); Mean Platelet Vol. 9.1 fl (6.2-12.0); Monocyte# 0.69 X10^3/uL; Monocyte% 6.1 % (0-10); NRBC Flagged by Analyzer 0 % (0-5); Neutrophil # 7.81 X10^3/uL (2.7-7.7); Neutrophil % 68.6 % (47-70); Platelet Count 292 K/mm3 (150-450); RBC Distribution Width CV 12.3 % (11.6-14.6); RBC Distribution Width SD 40.5 fl (35.1-43.9); White Blood Count 11.4 K/mm3 (4.4-11.0)
[2019-03-13 13:19] LABS: Prothrombin Time (Protime)PT. 12.9 SECONDS (11.7-14.9)
--- NOTE | 2019-03-13 13:19 | RAD_ITS ---
STUDY: X-RAY CHEST REASON FOR EXAM: Female, 48 years old. Pre-op, heart catheterization. Chest pain and tightness. Shortness of breath and palpitations. TECHNIQUE: PA and lateral views of the chest. COMPARISON: June 18, 2018. FINDINGS: The lungs are clear and expanded. There is no demonstrated pleural abnormality. Normal size heart. Normal mediastinum and tyra. Normal visualized pulmonary arteries. Normal visualized aortic arch and descending thoracic aorta. Normal visualized thoracic spine. Normal visualized ribs, clavicles, and shoulders. There is no demonstrated abnormality of the visualized soft tissue structures of the upper abdomen. RAD/Chest PA and Lateral IMPRESSION: No acute cardiopulmonary disease or major interval change. Electronically Signed: Han Camargo DO at 17:04 EDT Tel [phone], Service support ,
[2019-03-13 13:20] LABS: Partial Thromboplast Time 28.3 Seconds (24.1-36.2)
[2019-03-13 13:35] LABS: BUN 19 mg/dL (7-18); EST Glomerular Filtration Rate 82 mL/min (>60); Glucose 87 mg/dL (74-106)
[2019-03-13 13:36] LABS: Anion Gap 8 (5-15); BUN/Creat Ratio 23.7 RATIO (10-20); Calcium,Total 8.8 mg/dL (8.5-10.1); Chloride 105 mmol/L (98-107); Est Glom Filt Rate - Afr Amer 99 mL/min (>60); Potassium 3.5 mmol/L (3.5-5.1); Sodium Level 140 mmol/L (136-145)
== END | disposition home or self-care (01) ==
LOC: LAB 12:56
PROVIDERS: Family Provider Family Medicine; PCP Family Medicine; Referring Provider Specialist; Visit Provider Specialist
DX: R00.2 Palpitations (principal); R06.02 Shortness of breath; R07.9 Chest pain, unspecified
CPT/HCPCS: 36415; 71046; 80048; 85025; 85610; 85730

== ENCOUNTER 2019-03-20 07:54 | Day surgery (SDC) | payer OTHER, SELFPAY ==
[2019-03-06 13:23] VITALS: BMI 32.4
[2019-03-20 08:17] VITALS: BMI 33.1
--- NOTE | 2019-03-22 09:59 | CL.D_ITS ---
Patient Name: ELTON LEDESMA Study Date: 03/20/2019 Performing: José Miguel Navarro MD Ht: 59.84 inches 152 cm : 1970 Wt: 163.98 lbs 74.38 kg Age: 48 Gender: female BSA: 1.71 PROCEDURE(S) PERFORMED PY83-MCS/COR/LV CLINICAL PROFILE AND INDICATIONS Indications: Suspected CAD Heart Failure: None Stress/Imaging Date: 02/22/19Stress Test with SPECT MPI: Indeterminant CAD Presentations: Unstable angina. CONCLUSIONS Normal coronary arteries RECOMMENDATIONS Risk factor modification DESCRIPTION OF PROCEDURE The patient arrived to the procedure lab. The risks and benefits of the procedure as well as a full d escription of our services here and current unavailability of surgical backup were fully explained to the patient and/or their significant other prior to the catheterization. The Timeout was completed, verifying the correct patient and procedure. The patient's procedural site was prepped and draped in the usual fashion. Local anesthetic was given subcutaneously to right radial region with Lidocaine 2% . Using a modified Seldinger technique, arterial access was obtained via the right radial artery, a 6 Fr sheath was inserted. Left Coronary Artery selective angiography was performed in multiple views u sing a 5 Fr. JL3.5 catheter. Left Ventriculography was performed in ALBERT projection using a 5 Fr. JR4. LV to AO pullback pressures were then recorded. Right Coronary Artery selective angiography was then performed in multiple views using a 5 Fr. JR 4 catheter.The arterial sheath was pulled and a TR Band was applied for hemostasis CORONARY ANGIOGRAPHY DOMINANCE: Right Dominant LEFT HEART ASSESSMENT Left Ventricular Ejection Fraction: by LV Gram 70 % Normal LV wall motion LEFT MAIN: Angiographically normal LEFT ANTERIOR DESCENDING ARTERY: Angiographically normal CIRCUMFLEX ARTERY: Angiographically normal RIGHT CORONARY ARTERY: Angiographically normal VALVE FINDINGS: No Aortic Valve Stenosis No Mitral Insufficency COMPLICATIONS No Complications PROCEDURE MEDICATIONS Versed 1 mg IV Fentanyl 50 mcg IV Versed 1 mg IV Oxygen: 2 L/min via nasal cannula Heparin given IA 03/20/2019 09:46:12 Verapamil 2.5mg, Ntg 100mcgs, 3000 units of Heparin given IA 03/20/2019 09:46:12 SUMMARY OF HEMODYNAMIC DATA Time AIR REST ECG 08:21:45 AO 126/88 (106) SA 09:49:10 LV 159/-10, 17 09:52:41 LV 150/-4, 19 09:52:48 LV 168/-7, 22 09:53:17 LVp 173/0, 23 09:53:23 AOp 162/86 (123) 09:53:28 AO 175/92 (130) 09:53:31 10:11:42 Signed By José Miguel Navarro MD On 03/20/2019 10:14:11 José Miguel Navarro MD
== END 2019-03-20 12:05 | disposition home or self-care (01) ==
LOC: CLSP 07:55
PROVIDERS: Family Provider Family Medicine; PCP Family Medicine; Referring Provider Specialist; Visit Provider Specialist
DX: R07.9 Chest pain, unspecified (principal); R00.2 Palpitations; R06.02 Shortness of breath
CPT/HCPCS: 93458; 99152; 99153; J7040; C1769; C1894; Q9967

== ENCOUNTER 2019-08-08 15:44 | Emergency (ER) | payer OTHER, SELFPAY ==
[2019-06-19 10:22] VITALS: BMI 33.1
[2019-08-08 15:45] VITALS: BP 146/102; PULSE 86; RESP 17; TEMP 36.4; O2SAT 100; BMI 28.0
--- NOTE | 2019-08-08 15:54 | ED.DCSUM_ITS ---
- ER Visit Summary Date of Service: 08/08/19 Chief Complaint: Abdominal pain, diarrhea History of Present Illness: The patient is a 48 F who states she has had diarrhea for 4 days. She has had loose stools with no blood. She has felt nauseous without vomiting. She has diffuse abdominal pain which is sharp in the epigastric region. She tried Pepto-Bismol at home without relief. She took no other antidiarrheals. No fevers. She had a hysterectomy last year. Physical Examination: Vital signs reviewed. HEENT exam unremarkable. Heart is regular rate and rhythm without murmurs. Lungs are clear to auscultation. Abdomen is soft mild diffuse tenderness. Extremities reveal no edema. Skin exam normal. Neurologic exam normal. Test Results: Acute abdominal series reveals nothing acute Emergency Department Course and Treatment: Patient was given a GI cocktail and Bentyl. This did not help with her pain but she was given Zofran and Imodium and she feels better. This is likely of viral gastroenteritis. I will treat her with Zofran and Imodium at home. She will follow-up with her doctor Treatment Plan: [] Disposition: Discharge Impression: Abdominal pain, diarrhea This note was generated with [employer] dictation software. It may contain incorrect words, spelling, and punctuation that were not noted in review of the chart prior to signing ED Disposition - Plan for ED Patient: Disposition: Home or Assisted Living Instructions: ABDOMINAL PAIN, Unknown Cause, (Female) Prescriptions: Loperamide [Imodium] 2 mg PO Q6H PRN PRN #20 cap PRN Reason: Diarrhea Transmission Status: Pending to [facility] Ondansetron [Zofran Odt] 4 mg PO Q8H PRN PRN #10 tab PRN Reason: Nausea [id number] Referrals: Brooks Fulton MD [Primary Care Provider] - Additional Instructions: Your prescriptions were electronically transmitted to [facility]
[2019-08-08] MEDS: Dicyclomine 10 MG Capsule 20 MG PO (16:07)
[2019-08-08] MEDS: Mag Hydrox/Al Hydrox/Simeth 30 ML UDC PO (16:08)
--- NOTE | 2019-08-08 16:12 | RAD_ITS ---
STUDY: X-RAY - ACUTE ABDOMINAL SERIES REASON FOR EXAM: Female, 48 years old. abdominal pain since tuesday TECHNIQUE: Single view of the chest. Supine, supine and upright, 2 views(s) of the abdomen were obtained. COMPARISON: Prior abdomen of June 19, 2018 at abdomen and pelvic CT exam of November 05, 2018 FINDINGS: The lungs are clear and expanded. Normal size heart. Normal mediastinum and tyra. Normal visualized pulmonary arteries. Normal visualized aortic arch and descending thoracic aorta. Nondistended stomach. Diffuse increase in intestinal bowel gas which is mostly in the colon without distention and without a substantial stool collection. Negative for gross organomegaly, abdominal or pelvic calcifications. Normal visualized osseous structures. RAD/Acute Abdomen Inc Chest IMPRESSION: No acute cardiopulmonary findings. Diffuse increase in primarily colonic bowel gas without distention or without a substantial stool collection. Negative for free air. Negative for organomegaly, abdominal or pelvic calcifications. Electronically Signed: Mile Fleming MD at 16:37 EST , Service support ,
[2019-08-08] MEDS: Loperamide 2 MG Capsule PO (16:45)
[2019-08-08] MEDS: Ondansetron ODT 4 MG Tablet 8 MG PO (16:45)
[2019-08-08 17:28] VITALS: BP 107/78; PULSE 80; RESP 15; O2SAT 98
== END 2019-08-08 17:29 | disposition home or self-care (01) ==
PROVIDERS: Emergency Provider Emergency Medicine; PCP Family Medicine
DX: R19.7 Diarrhea, unspecified (principal); R10.84 Generalized abdominal pain; F32.9 Major depressive disorder, single episode, unspecified; Z79.899 Other long term (current) drug therapy
CPT/HCPCS: 74022; 99283

== ENCOUNTER → 2020-01-08 | Outpatient (CLI) | payer OTHER, SELFPAY ==
[2019-09-17 08:38] VITALS: BMI 28.0
--- NOTE | 2020-01-08 09:21 | US_ITS ---
STUDY: ULTRASOUND BREAST - LEFT REASON FOR EXAM: Female, 49 years old. Follow-up for left breast nodules. TECHNIQUE: Axial and longitudinal images of the LEFT breast were performed with a high resolution ultrasound transducer. # OF IMAGES: 18 COMPARISON: Comparison is made with prior dated EXAMINATION DATED JUNE 12, 2019. FINDINGS: LEFT Breast: Stable 7 mm x 9 mm x 3 mm hypoechoic nodule at the o''clock position in the breast at 2 cm from nipple. I do not clock position breast at 2 cm from nipple, there is evidence of a 5 mm x 4 mm x 4 mm hypoechoic slightly lobular nodule. At the 6:00 position the breast but no sinus and nipple. It is also evidence of a 5 mm x 4 mm x 2 mm hypoechoic nodule. US/Breast Limited Unilateral IMPRESSION: Stable examination. ASSESSMENT CATEGORY: BIRADS Category 2: Benign. A letter regarding these results will be sent to the patient by the facility within 30 days. Electronically Signed: Mehran Novak, at 13:40 EDT , Service support ,
== END | disposition home or self-care (01) ==
PROVIDERS: PCP Family Medicine; Referring Provider Surgery; Visit Provider Surgery
DX: R92.8 Other abnormal and inconclusive findings on diagnostic imaging of breast (principal)
CPT/HCPCS: 76642

== ENCOUNTER → 2020-02-21 09:55 | Outpatient (CLI) | payer OTHER, SELFPAY ==
[2019-09-17 08:38] VITALS: BMI 28.0
== END ==
PROVIDERS: PCP Family Medicine; Referring Provider Nurse Practitioner Family; Visit Provider Nurse Practitioner Family
DX: Z20.828 Contact with and (suspected) exposure to other viral communicable diseases (principal)
CPT/HCPCS: 87635; 94799; U0003

== ENCOUNTER 2021-03-02 11:41 | Emergency (ER) | payer OTHER, MEDICAID, SELFPAY ==
[2021-03-02 11:42] VITALS: BP 117/74; PULSE 88; RESP 18; TEMP 37.4; O2SAT 99; BMI 27.1
--- NOTE | 2021-03-02 12:43 | EKG12_ITS ---
Test Reason : SYNCOPE Blood Pressure : / mmHG Vent. Rate : 078 BPM Atrial Rate : 078 BPM P-R Int : 134 ms QRS Dur : 094 ms QT Int : 406 ms P-R-T Axes : 054 002 056 degrees QTc Int : 462 ms Normal sinus rhythm Poor R wave progression Confirmed by NISSA BEST, NORMA ([id number]), editor & co founder JOSE RIVERO ([id number]) on 03/03/2021 8:48:46 AM Referred By: Confirmed By:NORMA AZAR MD
--- NOTE | 2021-03-02 12:43 | EDS_ITS ---
HPI History of Present Illness Chief Complaint: Syncope Informant: patient Narrative Narrative: 50-year-old female states she went to bed last night around 10 PM. She states she felt fine. She got up at 2:00 and was going to go urinate. Going across to the bathroom she felt very lightheaded and nauseous. She notes that the nausea was also present yesterday and so she did not really eat anything. She states that she was able to crawl back into bed and did not notice that she had injured herself. When she woke this morning she continues to have lightheadedness and nausea. She denies any diarrhea. No body aches cough sore throat rhinorrhea. [facility] Medical History (Updated 03/02/21 @ 15:[address] Montana Conde DO) Abnormal EKG Abnormal ultrasound of breast Chest pain Chest pain Cyst of left breast Cyst of right breast Gastroenteritis Hypokalemia Menorrhagia Pelvic pain Home Medications dexamethasone 6 mg PO DAILY #7 tab 03/02/21 [Rx Last Taken Unknown] ondansetron 4 mg PO Q6H PRN PRN #15 tab 03/02/21 [Rx Last Taken Unknown] potassium chloride [K-Tab] 20 meq PO DAILY #5 tab 03/02/21 [Rx Last Taken Unknown] sertraline 50 mg PO DAILY 03/02/21 [History Last Taken Unknown] Allergy/AdvReac Type Severity Reaction Status Date / Time povidone-iodine Allergy Intermediate Hives Verified 03/02/21 11:42 [From Betadine] soap [From Betadine] Allergy Intermediate Hives Verified 03/02/21 11:42 atropine [From ] Allergy Hives Verified 03/02/21 11:42 erythromycin base Allergy Hives Verified 03/02/21 11:42 hyoscyamine [From ] Allergy Hives Verified 03/02/21 11:42 Penicillins [PCN] Allergy Unknown Verified 03/02/21 11:42 phenobarbital [From ] Allergy Hives Verified 03/02/21 11:42 scopolamine [From ] Allergy Hives Verified 03/02/21 11:42 Family History Mother Thyroid disorder Hypertension Diabetes Father Hypertension Myocardial infarction Diabetes Grandmother Cancer lung Grandfather CVA (cerebral vascular accident) Grandmother Aneurysm Surgical History History of appendectomy History of endometrial ablation History of hysterectomy (11/23/18) History of ovarian cystectomy History of surgical removal of ganglion cyst History of tubal ligation Social History Smoking Status: Never smoker alcohol intake: never substance use type: does not use caffeine: Yes Type: coffee ROS ROS ED ROS Narrative Lightheadedness Constitutional Constitutional ED: Denies chills or weight loss Eyes Eyes: Denies change in vision or diplopia ENT ENT ED: Denies ear pain, rhinorrhea or sore throat Cardiovascular Cardiovascular: Reports other Details: Syncope ; Denies chest pain, orthopnea, palpitations or racing heartbeat Respiratory/Chest Respiratory/Chest: Denies cough, dyspnea or orthopnea Gastrointestinal Gastrointestinal: Reports nausea; Denies abdominal pain, diarrhea or vomiting Genitourinary Genitourinary ED: Denies dysuria, hematuria or urinary frequency Musculoskeletal Musculoskeletal: Denies arthralgias or myalgias Integumentary Denies abscess or rash Neurologic Neurologic: Denies headache(s) or weakness Psychiatric Psychiatric: Denies anxiety, depression, suicidal ideation or suicidal thoughts Endocrine Endocrinology: Denies polydipsia, polyphagia or polyuria Allergic/Immunologic Allergic/Immunologic ED: Denies mouth swelling, tongue swelling or urticaria EXAM Physical Exam Const Vital Signs: 03/02/21 11:42 03/02/21 12:32 03/02/21 13:43 Temperature 99.3 F H Temperature Source Temporal Pulse Rate 88 Pulse Rate [Lying] 94 Pulse Rate [Sitting] 93 Pulse Rate [Standing] 92 Respiratory Rate 18 Respiratory Effort Normal Non-Labored Respiratory Pattern Normal Blood Pressure 117/74 Blood Pressure [Lying] 136/72 H Blood Pressure [Sitting] 132/73 H Blood Pressure [Standing] 127/77 H Blood Pressure Mean 88 Blood Pressure Mean [Lying] 93 Blood Pressure Mean [Sitting] 92 Blood Pressure Mean [Standing] 93 Pulse Ox 99 Oxygen Delivery Method Room Air 03/02/21 14:07 03/02/21 15:12 Temperature Temperature Source Pulse Rate 90 90 Pulse Rate [Lying] Pulse Rate [Sitting] Pulse Rate [Standing] Respiratory Rate 18 23 H Respiratory Effort Respiratory Pattern Blood Pressure 125/79 H 145/69 H Blood Pressure [Lying] Blood Pressure [Sitting] Blood Pressure [Standing] Blood Pressure Mean 94 94 Blood Pressure Mean [Lying] Blood Pressure Mean [Sitting] Blood Pressure Mean [Standing] Pulse Ox Oxygen Delivery Method Positive well nourished and well developed General Appearance ED: well developed HEENT Reports normocephalic, head/scalp atraumatic and moist mucous membranes Eyes PERRL and EOMs intact bilaterally Neck no lymphadenopathy, supple and no JVD Resp normal respiratory effort and clear to auscultation bilaterally Cardio regular rate, regular rhythm and no murmurs GI normal to inspection, nondistended, normoactive bowel sounds and non-tender Palpation: soft Back/Spine no CVA tenderness and normal ROM Extremity normal to inspection General Extremety ED: Negative for edema General Extremity: Negative for edema Neuro oriented x3 and CN's II-XII intact bilaterally Sensorium / Orientation: alert Motor Exam: strength 5/5 throughout Psych mental status grossly normal Mood & Affect: Negative for depressed or tearful Skin no rashes or lesions noted and no wounds MDM MDM MDM Narrative Medical decision making narrative: Patient is Covid positive. Slight leukocytosis of 4.1. D-dimer is elevated 0.53. Normal troponin. CTA of the chest was obtained which did not demonstrate any pulmonary embolism. There are some areas of patchy infiltrates consistent with her COVID-19 diagnosis. Patient received IV fluids. Was noted that her potassium was 3.0 she received 40 mEq of that. Patient will be discharged home on dexamethasone and Zofran. Return if worsening or concerns Lab Data Attestation: I reviewed the patient's lab results. Labs: Laboratory Results - last 24 hr 03/02/21 03/02/21 03/02/21 12:45 12:45 12:45 WBC 4.1 L RBC 4.45 Hgb 13.7 Hct 40.8 MCV 91.7 MCH 30.8 MCHC 33.6 RDW Std Deviation 40.1 RDW Coeff of Azael 11.9 Plt Count 168 MPV 9.1 Immature Gran % (Auto) 0.200 Neut % (Auto) 65.8 Lymph % (Auto) 26.0 [place] % (Auto) 7.8 Eos % (Auto) 0.0 Baso % (Auto) 0.2 Absolute Neuts (auto) 2.7 Absolute Lymphs (auto) 1.07 Nucleated RBC % 0 D-Dimer Quant (PE/DVT) 0.53 H* Sodium 139 Potassium 3.0 L Chloride 104 Carbon Dioxide 28.0 Anion Gap 7 BUN 12 Creatinine 0.70 Estim Creat Clear Calc 69.83 Est GFR (MDRD) Af Amer 115 Est GFR (MDRD) Non-Af 95 BUN/Creatinine Ratio 17.2 Glucose 100 Calcium 8.2 L Total Bilirubin 0.40 AST 24 ALT 27 Alkaline Phosphatase 45 Troponin I High Sens 5 Total Protein 7.3 Albumin 3.4 Globulin 3.9 Albumin/Globulin Ratio 0.9 Radiography Diagnostic Testing: Radiology Impression Chest CTA 03/02/21 13:23 IMPRESSION: Negative CTA Chest. Pulmonary findings of unknown chronicity but consistent with atypical or viral pneumonia in the appropriate clinical setting. Individualized dose optimization techniques were used for this CT. at 1502 Reported and signed by: Juanito Darby MD Electronically Signed: Juanito Darby MD at 15:01 EDT Tel , Service support , EKG Initial EKG: Attestation: I personally reviewed and interpreted this EKG as follows: Comments: Normal sinus rhythm with ventricular rate of 78 bpm. Discharge Plan Triage Chief Complaint: Syncope ED Provider: Montana Conde Dx/Rx/DC Orders Clinical Impression: Syncope and collapse, Acute hypokalemia, COVID-19 Instructions: Coronavirus Disease 2019 (COVID-19): Caring for Yourself or Others Prescriptions: New dexamethasone 6 MG tablet 6 mg PO DAILY Qty: 7 RF: 0 ondansetron [ondansetron] 4 MG tablet 4 mg PO Q6H PRN PRN (Reason: Nausea) Qty: 15 RF: 0 potassium chloride [K-Tab] 20 mEq tablet extended release 20 meq PO DAILY Qty: 5 RF: 0 No Action sertraline 50 mg tablet 50 mg PO DAILY RF: 0 Primary Care Provider: Brooks Fulton Referrals: Brooks Fulton MD [Primary Care Provider] - As Needed Disposition Disposition: Home, Self Care
[2021-03-02 12:51] LABS: Absolute Lymphocyte Count 1.07 X10^3/uL (0.83-4.51); Absolute Neutrophil Count 2.7 X10^3/uL (2.0-7.7); Basophil# 0.01 X10^3/uL; Basophil% 0.2 % (0-1); Hematocrit 40.8 % (37-47); Hemoglobin 13.7 g/dL (12.0-15.0); Lymphocyte # 1.07 X10^3/ul (0.83-4.51); Mean Corp Hgb Conc 33.6 g/dL (32-36); Mean Corpuscular Hgb 30.8 pg (27.0-32.0); Mean Corpuscular Volume 91.7 fL (81-99); Mean Platelet Vol. 9.1 fl (6.2-12.0); Monocyte# 0.32 X10^3/uL; Monocyte% 7.8 % (0-10); NRBC Flagged by Analyzer 0 % (0-5); Neutrophil # 2.71 X10^3/uL (2.7-7.7); Neutrophil % 65.8 % (47-70); Platelet Count 168 K/mm3 (150-450); RBC Distribution Width CV 11.9 % (11.6-14.6); RBC Distribution Width SD 40.1 fl (35.1-43.9); Red Blood Count 4.45 M/mm3 (4.2-5.4); White Blood Count 4.1 K/mm3 (4.4-11.0)
[2021-03-02] MEDS: 0.9% Normal Saline 1,000 ML 1000 ML IV (12:54)
[2021-03-02 13:07] LABS: D-Dimer Quantitative (DVT/PE) 0.53 FEU/ug/m (0.27-0.49)
[2021-03-02 13:08] LABS: ALB/GLOB Ratio 0.9 RATIO (0.9-2.4); AST(SGOT) 24 U/L (15-37); Alanine Aminotransfer ALT/SGPT 27 U/L (13-56); Albumin, Serum 3.4 g/dL (3.2-5.0); Alkaline Phosphatase 45 U/L (45-117); Anion Gap 7 (5-15); BUN 12 mg/dL (7-18); BUN/Creat Ratio 17.2 RATIO (10-20); Calcium,Total 8.2 mg/dL (8.5-10.1); Chloride 104 mmol/L (98-107); EST Glomerular Filtration Rate 95 mL/min (>60); Est Glom Filt Rate - Afr Amer 115 mL/min (>60); Estimated Creatinine Clearance 69.83 ml/min; Globulin 3.9 g/dL (2.2-4.2); Glucose 100 mg/dL (74-106); Protein, Total 7.3 g/dL (6.4-8.2); Sodium Level 139 mmol/L (136-145); Troponin-I HS 5 pg/mL (3.0-54.0)
--- NOTE | 2021-03-02 13:23 | CT_ITS ---
HISTORY: elevated D-dimer EXAMINATION: CTA Chest WO/W Contrast Injection TECHNIQUE: Helically acquired images were obtained of the chest following IV contrast as per pulmonary angiogram protocol with 3D reconstructions. A radiation dose optimization technique was used for this scan. IV Contrast dosage and agent: IV 75mL [id number] COMPARISON: None FINDINGS: LUNGS, PLEURA AND LARGE AIRWAYS: Multifocal, bilateral alveolar and groundglass opacities with areas of septal thickening, scattered small consolidations. No pleural effusion or pneumothorax. THYROID: No thyroid lesions. PULMONARY ARTERIES: Normal in caliber. No pulmonary embolism. AORTA AND GREAT VESSELS: No aneurysm or dissection. HEART AND PERICARDIUM: Heart size is normal. No pericardial effusion. RV to LV ratio measures less than 1. MEDIASTINUM AND YAZMIN: No mediastinal or hilar adenopathy. Esophagus is unremarkable. No hiatal hernia. UPPER ABDOMEN: No acute pathology. BONES: Unremarkable. CT/CTA Chest W/WO Contrast IMPRESSION: Negative CTA Chest. Pulmonary findings of unknown chronicity but consistent with atypical or viral pneumonia in the appropriate clinical setting. Individualized dose optimization techniques were used for this CT. at 1502 Reported and signed by: Juanito Darby MD Electronically Signed: Juanito Darby MD at 15:01 EDT Tel , Service support ,
[2021-03-02 13:43] VITALS: BP 127/77; BP 132/73; BP 136/72; PULSE 92; PULSE 93; PULSE 94
[2021-03-02] MEDS: Potassium Chloride Oral Tablet 20 MEQ 40 MEQ PO (13:43)
[2021-03-02 14:07] VITALS: BP 125/79; PULSE 90; RESP 18
[2021-03-02 15:12] VITALS: BP 145/69; PULSE 90; RESP 23
[2021-03-02 15:24] VITALS: BP 138/97; PULSE 62; RESP 15; O2SAT 98
== END 2021-03-02 15:25 | disposition home or self-care (01) ==
PROVIDERS: Emergency Provider Emergency Medicine; PCP Family Medicine
DX: U07.1 COVID-19 (principal); E87.6 Hypokalemia; R55 Syncope and collapse
CPT/HCPCS: 71275; 80053; 84484; 85025; 85379; 87426; 93005; 96360; 99285; J7030; Q9967

== ENCOUNTER 2022-11-27 08:10 | Observation (INO) | payer OTHER, SELFPAY ==
[2022-11-27 08:11] VITALS: BP 144/76; PULSE 91; RESP 16; TEMP 36.4; O2SAT 100; BMI 31.3
--- NOTE | 2022-11-27 08:16 | EKG12_ITS ---
Test Reason : STROKE Blood Pressure : / mmHG Vent. Rate : 103 BPM Atrial Rate : 103 BPM P-R Int : 170 ms QRS Dur : 092 ms QT Int : 382 ms P-R-T Axes : 058 021 084 degrees QTc Int : 500 ms Sinus tachycardia Nonspecific ST and T wave abnormality Abnormal ECG Confirmed by VERONICA BEST, KAE ([id number]), film editor supervisor JOSE RIVERO ([id number]) on 11/30/2022 8:02:51 AM Referred By: Confirmed By:KAE MARTIN MD
--- NOTE | 2022-11-27 08:16 | RAD_ITS ---
INDICATION: Neuro deficit, acute, stroke suspected EXAMINATION/TECHNIQUE: X-RAY - XR Chest 1 View COMPARISON: August 08, 2019 FINDINGS: LINES/DEVICES: None. LUNGS: No consolidation, edema or effusion. No pneumothorax. MEDIASTINUM AND CARDIOVASCULAR STRUCTURES: Cardiac silhouette not enlarged. Central airways and mediastinal contour are unremarkable. BONES AND SOFT TISSUES: Unremarkable. Stable exam. RAD/Chest 1 View IMPRESSION: No radiographic evidence of acute cardiopulmonary disease. Electronically Signed: Brooks Waite MD, NELLIE at 8:57 EDT ,
--- NOTE | 2022-11-27 08:16 | CT_ITS ---
INDICATION: Neuro deficit, acute, stroke suspected EXAMINATION: CT BRAIN - CT Head Stroke Protocol W/O Contrast Injection TECHNIQUE: Multiple axial images were obtained of the head without intravenous contrast. A radiation dose optimization technique was used for this scan. IV Contrast dosage and agent: None. RADIATION DOSAGE (If Supplied By Facility): CTDIvol = ( ) mGy, DLP = ( ) mGycm COMPARISON: FINDINGS: BRAIN PARENCHYMA: No intra- or extra-axial hemorrhage. No evidence of acute infarct. No intracranial mass or mass effect. There is preservation of the sawant/white matter interface. Posterior fossa structures are unremarkable. CSF SPACES: Appropriate for age. No hydrocephalus. Basal cisterns are patent. CALVARIUM, SKULL BASE, PARANASAL SINUSES AND MASTOID AIR CELLS: Clear. No discrete lytic or blastic abnormalities. ORBITS: Both globes, extraocular muscles, optic nerves and retrobulbar fat appear unremarkable. ASPECTS Score for Acute Strokes: 10 CT/STROKE Brain/Head without Cont IMPRESSION: Negative Brain CT without contrast. N.B. : The above Results were Read Back by Brooks Waite MD, NELLIE to Gallo Malcolm MD, and understanding confirmed on 11/27/2022 08:48:16 (ET). Electronically Signed: Brooks Waite MD, JD at 8:36 EDT ,
--- NOTE | 2022-11-27 08:17 | CT_ITS ---
INDICATION: Neuro deficit, acute, stroke suspected -- Vertigo EXAMINATION: CT BRAIN WITH CONTRAST TECHNIQUE: Noncontrast axial images were obtained of the brain. Subsequently, routine carotid CT angiogram protocol was performed without and with IV contrast. In addition, images were obtained of the [place]. NASCET criteria using the distal ICAs for comparison were used for evaluation of stenoses. 3D reconstructions were reviewed. A radiation dose optimization technique was used for this scan. IV Contrast dosage and agent: COMPARISON: None. FINDINGS: --CT BRAIN: BRAIN PARENCHYMA: No intra- or extra-axial hemorrhage. No evidence of acute infarct. No intracranial mass or mass effect. There is preservation of the sawant/white matter interface. Posterior fossa structures are unremarkable. CSF SPACES: Appropriate for age. No hydrocephalus. Basal cisterns are patent. CALVARIUM, SKULL BASE, PARANASAL SINUSES AND MASTOID AIR CELLS: Clear. No discrete lytic or blastic abnormalities. ASPECTS Score for Acute Strokes: 10 --CTA NECK: AORTIC ARCH AND BRANCHES: Normal anatomy, patent. RIGHT CCA: No occlusion, significant stenosis or dissection. RIGHT ICA: No occlusion, significant stenosis or dissection. LEFT CCA: Mild (1-39%) stenosis left carotid bulb. No occlusion, significant stenosis or dissection. LEFT ICA: No occlusion, significant stenosis or dissection. RIGHT VERTEBRAL ARTERY: No occlusion, significant stenosis or dissection. LEFT VERTEBRAL ARTERY: No occlusion, significant stenosis or dissection. NECK SOFT TISSUES: Unremarkable. --CTA HEAD: --Anterior circulation: ICAs: No significant stenosis at the intracranial/visualized segments. ACAs: No significant stenosis at the visualized segments. ACOM: Present. MCAs: No significant stenosis at the visualized segments. --Posterior circulation: PCOMs: Patent sanitation truck driver: No significant stenosis at the visualized segments. BASILAR ARTERY: No significant stenosis. VERTEBRAL ARTERIES: No significant stenosis at the intradural/visualized segments. No evidence of intracranial aneurysm or vascular malformation. CT/STROKE CTA Head AND Neck W/Con IMPRESSION: Mild (1-39%) stenosis left carotid bulb. N.B. : The above Results were Read Back by Brooks Waite MD, JD to Gallo Malcolm MD, and understanding confirmed on 11/27/2022 08:52:46 (ET). Electronically Signed: Brooks Waite MD, JD at 8:50 EDT ,
--- NOTE | 2022-11-27 08:18 | EDS_ITS ---
HPI History of Present Illness Chief Complaint: Dizziness Detail of Chief Complaint: Dizziness which patient describes as she is spending Informant: patient Onset/Context/Timing Onset: Today (0700) Context: Sudden Onset Timing: Continuous Quality and Location: Positive for Difficulty with Ambulation Onset: 0700 Current Severity: Mild Maximum Severity: Mild Worsened by: Nothing Relieved by: Nothing Associated Symptoms Associated Symptoms: Positive for Nausea; Negative for Headache, Vomiting or Chest Pain Narrative Narrative: Patient is a 52-year-old woman with no significant past medical history who presents with vertigo that started at 0700. She was walking to the restroom. She denies headache. Denies double vision. Denies blurred vision. No trouble speech or swallowing. She denies paresthesia, anesthesia or motor weakness. She initially states she is dizzy. She did not endorse lightheadedness. She was not sure if the room was spinning. She states she is spinning. She denies neck pain. She denies cardiac or respiratory symptoms. Prior similar symptoms: No Recent Illness/Hospitalization: No [facility] Medical History (Updated 11/27/22 @ 08:[address] Gallo Malcolm MD) Abnormal EKG Abnormal ultrasound of breast Chest pain Chest pain Cyst of left breast Cyst of right breast Gastroenteritis Hypokalemia Menorrhagia Pelvic pain Home Medications dexamethasone 6 mg tablet 6 mg PO DAILY #7 tabs 03/02/21 [Rx Last Taken Unknown] ondansetron 4 mg disintegrating tablet 4 mg PO Q6H PRN PRN Nausea #15 tabs 03/02/21 [Rx Last Taken Unknown] potassium chloride 20 mEq tablet,extended release (K-Tab) 20 meq PO DAILY #5 tabs 03/02/21 [Rx Last Taken Unknown] sertraline 50 mg tablet 50 mg PO DAILY 03/02/21 [History Last Taken Unknown] Allergy/AdvReac Type Severity Reaction Status Date / Time povidone-iodine Allergy Intermediate Hives Verified 11/27/22 08:33 [From Betadine] soap [From Betadine] Allergy Intermediate Hives Verified 11/27/22 08:33 atropine [From ] Allergy Hives Verified 11/27/22 08:33 erythromycin base Allergy Hives Verified 11/27/22 08:33 hyoscyamine [From ] Allergy Hives Verified 11/27/22 08:33 Penicillins [PCN] Allergy Unknown Verified 11/27/22 08:33 phenobarbital [From ] Allergy Hives Verified 11/27/22 08:33 scopolamine [From ] Allergy Hives Verified 11/27/22 08:33 Family History Mother Thyroid disorder Hypertension Diabetes Father Hypertension Myocardial infarction Diabetes Grandmother Cancer lung Grandfather CVA (cerebral vascular accident) Grandmother Aneurysm Surgical History History of appendectomy History of endometrial ablation History of hysterectomy (11/23/18) History of ovarian cystectomy History of surgical removal of ganglion cyst History of tubal ligation Social History (Updated 11/27/22 @ 08:[address] Gallo Malcolm MD) household members: spouse and family Smoking Status: Never smoker alcohol intake: never substance use type: does not use caffeine: Yes Type: coffee ROS ROS ED Constitutional Constitutional ED: Denies chills, fever(s), subjective, sweats or weakness Eyes Eyes: Reports change in vision bilateral; Denies blurry vision or diplopia ENT ENT ED: Denies ear pain, rhinorrhea or sore throat Cardiovascular Cardiovascular: Denies chest pain, palpitations or paroxysmal nocturnal dyspnea Respiratory/Chest Respiratory/Chest: Denies cough, dyspnea or paroxysmal nocturnal dyspnea Gastrointestinal Gastrointestinal: Denies abdominal pain, nausea or vomiting Genitourinary Genitourinary ED: Denies dysuria, hematuria or urinary frequency Musculoskeletal Musculoskeletal: Denies arthralgias, back pain, myalgias or neck pain Integumentary Denies rash Neurologic Neurologic: Denies headache(s), paresthesias or weakness Psychiatric Psychiatric: Reports anxiety; Denies depression Endocrine Endocrinology: Denies polydipsia or polyuria Hematologic/Lymphatic Hematologic/Lymphatic: Denies easy bleeding or easy bruising EXAM Physical Exam Const Vital Signs: 11/27/22 08:11 11/27/22 08:17 11/27/22 08:46 Temperature 97.6 F L Temperature Source Temporal Pulse Rate 91 90 Respiratory Rate 16 18 Blood Pressure 144/76 H 131/67 H Blood Pressure Mean 98 88 Pulse Ox 100 100 Oxygen Delivery Method Room Air Room Air Room Air Positive well nourished and well developed General Appearance ED: well developed and NAD HEENT Reports TM's clear and moist mucous membranes atraumatic Tympanic Membrane ED: Yes TM's clear Eyes PERRL and EOMs intact bilaterally Eyes Narrative: There is no nystagmus with central gaze. General Eye ED: Negative for pale conjunctiva or scleral icterus Neck no lymphadenopathy, supple and no JVD Chest Wall inspection of chest normal and palpation of chest normal Resp normal respiratory effort and clear to auscultation bilaterally Cardio no murmurs Rate: regular rate Rhythm: regular rhythm and abnormal rhythm Heart Sounds: S1 normal and S2 normal GI normal to inspection, nondistended, normoactive bowel sounds, soft to palpation, non-tender, non-distended and no masses Extremity normal to inspection General Extremety ED: Negative for deformity, edema or tenderness General Extremity: Negative for deformity or edema Neuro oriented x3, CN's II-XII intact bilaterally and no sensory deficits noted Bharti Coma Scale: document GCS findings Spontaneous Obeys Commands Oriented 15 Sensorium / Orientation: alert Speech: speech normal Sensory Exam: sensory level loss detected Motor Exam: strength 5/5 throughout Psych mental status grossly normal Skin no wounds General Skin Exam: Negative for jaundice Lesions: no lesions Rashes: no rashes NIHSS NIHSS Initial: 1a Level of Consciousness: 0 1b LOC Questions (Score 2 if aphasic/stupor): 0 1c LOC Commands (Only score 1st attempt): 0 2 Best Gaze (If aphasic, use reflexive mvmts.): 0 3 Visual: 0 4 Facial Palsy: 0 5 Motor Arm Right (UN = amputation/fusion): 0 5 Motor Arm Left: 0 6 Motor Leg Right: 0 6 Motor Leg Left: 0 7 Limb ataxia (Only + if out of proportion): 0 8 Sensory (Aphasia/stupor=0 or 1, coma=2): 0 9 Best Language: 0 10 Dysarthria (mute, coma=2, intubated=UN): 0 11 Extinction and Inattention (only scored if +): 0 Total Score: 0 MDM MDM MDM Narrative Medical decision making narrative: Patient presents with vertigo that is not positional and does not improve with patient closing her eyes. Need to consider vertebrobasilar insufficiency, cerebellar stroke, dissection of the posterior circulatory system, atypical presentation for peripheral vertigo, cerebral pontine angle tumor. Acoustic neuroma etc. Stroke order set was initiated. This would include EKG, appropriate blood work, CT without contrast and CTA of the head and neck to evaluate the posterior circulatory system. EKG was obtained to assess for acute ischemia and any dysrhythmia. Of note patient monitor reveals a normal sinus rhythm that was narrow complex. History & Record Review Additional record(s) reviewed:: Prior outpatient record (Gynecologic path specimens from 2017 2018 were benign. Patient had also had records imported from out side source regarding breast tissue biopsy, which was benign as well.) and Prior ED visit Lab Data Attestation: I reviewed the patient's lab results. Lab results narrative: CBC is normal. Coags normal. Basic metabolic panel [place]. Glucose is slight elevated 117 wit h a normal CO2 anion gap. Troponin is normal. Labs: Laboratory Results - last 24 hr 11/27/22 11/27/22 11/27/22 08:20 08:20 08:20 WBC 9.2 RBC 4.63 Hgb 14.3 Hct 44.5 MCV 96.1 MCH 30.9 MCHC 32.1 RDW Std Deviation 42.5 RDW Coeff of Azael 12.1 Plt Count 281 MPV 9.7 Immature Gran % (Auto) 0.200 Neut % (Auto) 48.5 Lymph % (Auto) 40.0 [place] % (Auto) 7.6 Eos % (Auto) 3.3 Baso % (Auto) 0.4 Absolute Neuts (auto) 4.4 Absolute Lymphs (auto) 3.67 Nucleated RBC % 0 PT 11.8 INR 0.9 APTT 24.1 Sodium 141 Potassium 3.8 Chloride 107 Carbon Dioxide 24.0 Anion Gap 10 BUN 23 H Creatinine 0.85 Estim Creat Clear Calc 56.24 Est GFR (MDRD) Af Amer 91 Est GFR (MDRD) Non-Af 75 BUN/Creatinine Ratio 27.1 H Glucose 117 H Calcium 9.2 Troponin I High Sens < 3 L Radiography Diagnostic Testing: Clinical Impression(s) from Imaging Studies Chest X-Ray 11/27/22 08:16 IMPRESSION: No radiographic evidence of acute cardiopulmonary disease. Electronically Signed: Brooks Waite MD, NELLIE at 8:57 EDT Reading Location ID and State: [facility] / [place] Tel , Service support , Head/Neck CTA 11/27/22 08:17 IMPRESSION: Mild (1-39%) stenosis left carotid bulb. Electronically Signed: Brooks Waite MD, JD at 8:50 EDT , ADDENDUM: 11/27/22 0859 IMPRESSION: Mild (1-39%) stenosis left carotid bulb. N.B. : The above Results were Read Back by Brooks Waite MD, NELLIE to Gallo Malcolm MD, and understanding confirmed on 11/27/2022 08:52:46 (ET). Electronically Signed: Brooks Waite MD, JD at 8:50 EDT , ADDENDUM: 11/27/22 0900 IMPRESSION: undefined CT of the head without contrast reveals no evidence of subarachnoid hemorrhage, intraparenchymal bleed, subdural hematoma or epidural hematoma. There is no obvious stroke per my review. Time of my review 825. Awaiting formal read by radiologist. Rhythm Strip Rhythm Strip: Sinus Rhythm Rate: 88 Ectopy: None Management Discussion w/another healthcare provider: Hospitalist (Dr. Lokesh Rosado the hospitalist was made aware of patient's history, physical and recommendations by [facility] neurologist and comments made by radiologist.), Dinkey Press Operator ([facility] neurologist) and Radiologist ([facility]) Treatment and Re-Evaluation Narrative: Spoke with the stroke neurologist. Apparently patient's symptoms started after a couple steps. He is considered as a wake-up stroke. Therefore she is not a candidate for thrombolytics. Stroke Documentation Questions Stroke Team Activated: Yes Reviewed Inclusion/Exclusion criteria: Yes IV Thrombolytic Administered: No (Considered wake-up stroke by [facility] neurologist) No contraindications from thrombolytic administration: No Risks, Benefits, Alternatives Discussed: No Discharge Plan Dx/Rx/DC Orders Clinical Impression: Vertigo, Blood pressure elevated without history of HTN Disposition Disposition: Acute Care Hospital [facility]
[2022-11-27 08:31] LABS: Absolute Lymphocyte Count 3.67 X10^3/uL (0.83-4.51); Absolute Neutrophil Count 4.4 X10^3/uL (2.0-7.7); Basophil# 0.04 X10^3/uL; Basophil% 0.4 % (0-1); Eosinophils% 3.3 % (0-5); Hematocrit 44.5 % (37-47); Hemoglobin 14.3 g/dL (12.0-15.0); Lymphocyte # 3.67 X10^3/ul (0.83-4.51); Mean Corp Hgb Conc 32.1 g/dL (32-36); Mean Corpuscular Hgb 30.9 pg (27.0-32.0); Mean Corpuscular Volume 96.1 fL (81-99); Mean Platelet Vol. 9.7 fl (6.2-12.0); Monocyte% 7.6 % (0-10); NRBC Flagged by Analyzer 0 % (0-5); Neutrophil # 4.44 X10^3/uL (2.7-7.7); Neutrophil % 48.5 % (47-70); Platelet Count 281 K/mm3 (150-450); RBC Distribution Width CV 12.1 % (11.6-14.6); RBC Distribution Width SD 42.5 fl (35.1-43.9); Red Blood Count 4.63 M/mm3 (4.2-5.4); White Blood Count 9.2 K/mm3 (4.4-11.0)
[2022-11-27 08:38] LABS: International Normalized Ratio 0.9; Prothrombin Time (Protime)PT. 11.8 SECONDS (11.7-14.9)
[2022-11-27 08:39] LABS: Partial Thromboplast Time 24.1 Seconds (24.1-36.2)
[2022-11-27 08:44] LABS: Anion Gap 10 (5-15); BUN 23 mg/dL (7-18); BUN/Creat Ratio 27.1 RATIO (10-20); Calcium,Total 9.2 mg/dL (8.5-10.1); Chloride 107 mmol/L (98-107); Creatinine, Serum 0.85 mg/dL (0.55-1.02); EST Glomerular Filtration Rate 75 mL/min (>60); Est Glom Filt Rate - Afr Amer 91 mL/min (>60); Estimated Creatinine Clearance 56.24 ml/min; Glucose 117 mg/dL (74-106); Potassium 3.8 mmol/L (3.5-5.1); Sodium Level 141 mmol/L (136-145); Troponin-I HS < 3 pg/mL (3.0-54.0)
[2022-11-27 08:46] VITALS: BP 131/67; PULSE 90; RESP 18; O2SAT 100
--- NOTE | 2022-11-27 08:57 | ED.RN ---
NIH D/C'D AT THIS TIME PER DR HAYWARD D/T CONTINUED NIH SCORE OF 0
--- NOTE | 2022-11-27 09:17 | NURSING ---
PCU OBS KITTOE VERTIGO
--- NOTE | 2022-11-27 09:20 | MRI_ITS ---
STUDY: MRI BRAIN WITHOUT CONTRAST REASON FOR EXAM: Female, 52 years old. vertigo TECHNIQUE: Standardized multiplanar fat and water weighted pulse sequences were obtained. COMPARISON: CT head November 27, 2022. HEMISPHERES, CEREBELLUM AND BRAINSTEM: 1. The cerebral parenchyma, ventricular system, subarachnoid spaces have normal configuration and density. There is a normal gyral pattern. There is normal sawant/white differentiation. No midline shift.. 2. The hemispheric white matter has normal appearance. 3. No intraparenchymal mass, hemorrhage, or acute territorial infarct. 4. The cerebellum, brainstem, basilar and suprasellar cisterns have normal appearance. No Chiari malformation. PITUITARY: Infundibulum and pituitary have normal configuration. Midline structures appear normal. CSF SPACES: Appropriate for age. No hydrocephalus. Basal cisterns are patent. VESSELS: 1. There are normal flow voids noted in the great vessels at the skull base ORBITS AND PARANASAL SINUSES: 1. Both globes, extraocular muscles, optic nerves and retrobulbar fat appear unremarkable. 2. Paranasal sinuses demonstrate mild posterior right ethmoidal mucosal thickening stable. BONY ELEMENTS: Bony elements of the cranial vault, facial skeleton and skull base have normal appearance. SCALP AND SOFT TISSUES: Normal appearance of the soft tissues of the scalp and the visualized face OTHER: None Stable exam. MRI/Brain without Contrast IMPRESSION: 1. No intracranial mass, hemorrhage, or acute territorial infarct. 2. Mild right posterior ethmoidal mucosal thickening. Electronically Signed: Brooks Waite MD, NELLIE at 11:04 EDT ,
[2022-11-27 09:32] VITALS: BP 140/78; PULSE 90; RESP 16; TEMP 36.4; O2SAT 97
--- NOTE | 2022-11-27 09:35 | PCM.HP.STD ---
HPI - General General Date of Admission: 11/27/22 Date of Service: 11/27/22 Chief Complaint: Dizziness HPI Narrative ELTON LEDESMA, is a 52 F in relatively good health who presented with dizziness. Patient's symptoms started on the morning of her admission. Prior to that patient had complained of feeling funny prior to going to bed. In addition to patient feeling dizzy which she described as spinning sensation she also had gait disturbance with patient leaning to her left. Initial head CT obtained in the emergency department came back unremarkable. Patient was deemed not a tPA candidate. Was admitted to a monitored bed for subsequent al [facility] Medical History Abnormal EKG Abnormal ultrasound of breast Chest pain Chest pain Cyst of left breast Cyst of right breast Gastroenteritis Hypokalemia Menorrhagia Pelvic pain Home Medications NK 11/27/22 [History Last Taken Unknown] Allergy/AdvReac Type Severity Reaction Status Date / Time povidone-iodine Allergy Intermediate Hives Verified 11/27/22 08:33 [From Betadine] soap [From Betadine] Allergy Intermediate Hives Verified 11/27/22 08:33 atropine [From ] Allergy Hives Verified 11/27/22 08:33 erythromycin base Allergy Hives Verified 11/27/22 08:33 hyoscyamine [From ] Allergy Hives Verified 11/27/22 08:33 Penicillins [PCN] Allergy Unknown Verified 11/27/22 08:33 phenobarbital [From ] Allergy Hives Verified 11/27/22 08:33 scopolamine [From ] Allergy Hives Verified 11/27/22 08:33 Family History Mother Thyroid disorder Hypertension Diabetes Father Hypertension Myocardial infarction Diabetes Grandmother Cancer lung Grandfather CVA (cerebral vascular accident) Grandmother Aneurysm Surgical History History of appendectomy History of endometrial ablation History of hysterectomy (11/23/18) History of ovarian cystectomy History of surgical removal of ganglion cyst History of tubal ligation Social History (Updated 11/27/22 @ 08:[address] Gallo Malcolm MD) household members: spouse and family Smoking Status: Never smoker alcohol intake: never substance use type: does not use caffeine: Yes Type: coffee ROS ROS Narrative GENERAL: denies fever, chills, night sweats, weight loss, anorexia HEENT: denies headache, sinus congestion, or drainage, dysphagia RESPIRATORY: denies cough, sputum production, shortness of breath, dyspnea on exertion CARDIAC: denies chest pain, palpitations, orthopnea, PND GASTROINTESTINAL: denies abdominal pain, nausea, vomiting, melena, GENITOURINARY: denies dysuria, urgency, frequency, heamaturia EXTREMITY: denies swelling MUSCULOSKELETAL: denies current joint pain or tenderness NEUROLOGIC: denies focal numbness, weakness, tingling HEMATOLOGIC: denies easy bruising and/or hemorrhage INTEGUMENT: denies rashes PSYCHIATRIC: denies suicidal or homicidal ideation Vital Signs Vital Signs Vital Signs: 11/27/22 08:11 11/27/22 08:17 11/27/22 08:46 Temperature 97.6 F L Temperature Source Temporal Pulse Rate 91 90 Respiratory Rate 16 18 Blood Pressure 144/76 H 131/67 H Blood Pressure Mean 98 88 Pulse Ox 100 100 Oxygen Delivery Method Room Air Room Air Room Air 11/27/22 09:32 Temperature 97.6 F L Temperature Source Temporal Pulse Rate 90 Respiratory Rate 16 Blood Pressure 140/78 H Blood Pressure Mean 98 Pulse Ox 97 Oxygen Delivery Method Room Air Weight Weight: 72.7 kg Body Mass Index (BMI) 31.3 Results Lab / Micro Data Result Diagrams: 11/27/22 08:20 11/27/22 08:20 Labs: Laboratory Results - last 24 hr 11/27/22 08:20: WBC 9.2, RBC 4.63, Hgb 14.3, Hct 44.5, MCV 96.1, MCH 30.9, MCHC 32.1, RDW Std Deviation 42.5, RDW Coeff of Azael 12.1, Plt Count 281, MPV 9.7, Immature Gran % (Auto) 0.200, Neut % (Auto) 48.5, Lymph % (Auto) 40.0, [place] % (Auto) 7.6, Eos % (Auto) 3.3, Baso % (Auto) 0.4, Absolute Neuts (auto) 4.4, Absolute Lymphs (auto) 3.67, Nucleated RBC % 0 11/27/22 08:20: PT 11.8, INR 0.9, APTT 24.1 11/27/22 08:20: Sodium 141, Potassium 3.8, Chloride 107, Carbon Dioxide 24.0, Anion Gap 10, BUN 23 H, Creatinine 0.85, Estim Creat Clear Calc 56.24, Est GFR (MDRD) Af Amer 91, Est GFR (MDRD) Non-Af 75, BUN/Creatinine Ratio 27.1 H, Glucose 117 H, Calcium 9.2, Troponin I High Sens < 3 L Rhythm Strip Rhythm Strip: Sinus Rhythm Rate: 88 Ectopy: None Radiology Impression Chest X-Ray 11/27/22 08:16 IMPRESSION: No radiographic evidence of acute cardiopulmonary disease. Electronically Signed: Brooks Waite MD, JD at 8:57 EDT , Head/Neck CTA 11/27/22 08:17 IMPRESSION: Mild (1-39%) stenosis left carotid bulb. Electronically Signed: Brooks Waite MD, JD at 8:50 EDT , ADDENDUM: 11/27/22 0859 IMPRESSION: Mild (1-39%) stenosis left carotid bulb. N.B. : The above Results were Read Back by Brooks Waite MD, NELLIE to Gallo Malcolm MD, and understanding confirmed on 11/27/2022 08:52:46 (ET). Electronically Signed: Brooks Waite MD, JD at 8:50 EDT , ADDENDUM: 11/27/22 0900 IMPRESSION: undefined Assessment & Plan Assessment/Plan (1) Vertigo: PLAN: Plan Patient is a 52-year-old lady presented with acute vertigo 1. Acute vertigo ? Admitted to a monitored bed plan is to rule out posterior circulation CVA with an MRI 2. DVT prophylaxis ? Low risk to encouraging ambulation Charges/Coding Visit Charges Inpatient E&M: 27011 Init Hosp L1
[2022-11-27] MEDS: LORazepam 2 MG/ML Syringe 1 MG IV ×2 (09:45→10:25)
[2022-11-27 09:47] LABS: Thyroid Stim Hormone (TSH) 2.43 uIU/mL (0.358-3.74)
--- NOTE | 2022-11-27 09:51 | ED.RN ---
pt in MRI at this time. MRI states they will call PCU to transport the patient to the floor sicne patient was okay for floor at this time.
--- NOTE | 2022-11-27 10:20 | ED.RN ---
per dr cardoza medications ordered (1mg ativan & 0.5mg versed) do not require RN monitoring.
[2022-11-27] MEDS: Midazolam 2 MG/2 ML Syringe 0.5 MG IV (10:25)
[2022-11-27 11:05] VITALS: BMI 31.5
[2022-11-27 11:14] VITALS: BP 127/77; PULSE 92; RESP 12; TEMP 36.7; O2SAT 98
[2022-11-27] MEDS: 0.9% Normal Saline 1,000 ML 100 ML IV (11:15)
--- NOTE | 2022-11-27 13:47 | PCM.DC.SUM ---
Providers Date of Admission: 11/27/22 Date of Discharge: 11/27/22 Primary Care Physician: Dr. Brooks Fulton MD Reason For Visit: VERTIGO Diagnosis Discharge Diagnosis (1) Vertigo: Status: Acute Code(s): R42 - Dizziness and giddiness Plan Patient is a 52-year-old lady presented with acute vertigo 1. Acute vertigo ? Admitted to a monitored bed plan is to rule out posterior circulation CVA with an MRI ? Patient underwent subsequent evaluation with an MRI which came back negative subsequently discharged home with meclizine. Patient was also instructed to follow-up with primary care physician for subsequent 2. DVT prophylaxis ? Low risk to encouraging ambulation Medications at Discharge Home Medications meclizine 12.5 mg tablet 12.5 mg PO TID PRN dizziness #20 tabs 11/27/22 Hospital Course Summary of Care Provided Minutes Spent on Discharge: 45 Weight / BMI Weight Weight: 73.2 kg Body Mass Index (BMI) 31.5 ABG / Lab / Microbiology Data Result Diagrams: 11/27/22 08:20 11/27/22 08:20 Laboratory: Laboratory Results - last 24 hr 11/27/22 08:20: WBC 9.2, RBC 4.63, Hgb 14.3, Hct 44.5, MCV 96.1, MCH 30.9, MCHC 32.1, RDW Std Deviation 42.5, RDW Coeff of Azael 12.1, Plt Count 281, MPV 9.7, Immature Gran % (Auto) 0.200, Neut % (Auto) 48.5, Lymph % (Auto) 40.0, [place] % (Auto) 7.6, Eos % (Auto) 3.3, Baso % (Auto) 0.4, Absolute Neuts (auto) 4.4, Absolute Lymphs (auto) 3.67, Nucleated RBC % 0 11/27/22 08:20: PT 11.8, INR 0.9, APTT 24.1 11/27/22 08:20: Sodium 141, Potassium 3.8, Chloride 107, Carbon Dioxide 24.0, Anion Gap 10, BUN 23 H, Creatinine 0.85, Estim Creat Clear Calc 56.24, Est GFR (MDRD) Af Amer 91, Est GFR (MDRD) Non-Af 75, BUN/Creatinine Ratio 27.1 H, Glucose 117 H, Calcium 9.2, Troponin I High Sens < 3 L 11/27/22 08:20: TSH 2.43 Radiography Diagnostic Testing: Radiology Impression Chest X-Ray 11/27/22 08:16 IMPRESSION: No radiographic evidence of acute cardiopulmonary disease. Electronically Signed: Brooks Waite MD, JD at 8:57 EDT , Head/Neck CTA 11/27/22 08:17 IMPRESSION: Mild (1-39%) stenosis left carotid bulb. Electronically Signed: Brooks Waite MD, JD at 8:50 EDT Reading Location ID and State: [facility] / [place] Tel , Service support , ADDENDUM: 11/27/22 0859 IMPRESSION: Mild (1-39%) stenosis left carotid bulb. N.B. : The above Results were Read Back by Brooks Waite MD, NELLIE to Gallo Malcolm MD, and understanding confirmed on 11/27/2022 08:52:46 (ET). Electronically Signed: Brooks Waite MD, JD at 8:50 EDT , ADDENDUM: 11/27/22 0900 IMPRESSION: undefined Brain MRI 11/27/22 09:20 IMPRESSION: 1. No intracranial mass, hemorrhage, or acute territorial infarct. 2. Mild right posterior ethmoidal mucosal thickening. Electronically Signed: Brooks Waite MD, JD at 11:04 EDT , D/C Instructions Discharge Diet: No restrictions Discharge Activity: Return to Normal Activity Call your doctor if you observe: Fever of 101 or Higher, Shortness of breath, Fainting spells and Chest pain Meaningful Use Info Meaningful Use Diagnoses (Choose all that apply): None applicable Discharge Plan Admission Admit Date/Time: 11/27/22 09:05 Attending Provider: Lokesh Rosado Primary Care Provider: Brooks Fulton Discharge Orders/Prescriptions Prescriptions: New meclizine 12.5 mg tablet 12.5 mg PO TID PRN (Reason: dizziness) Qty: 20 0RF Referrals / Follow Up: Brooks Fulton MD [Primary Care Provider] - Disposition Disposition (needs filled in before D/C Order can be placed): Home, Self Care Charges/Coding Visit Charges OBSV E&M: 70695 Observ/hosp same date L1
== END 2022-11-27 13:50 | disposition home or self-care (01) ==
LOC: ED 08:55 → PCU 11:08
PROVIDERS: Admitting Provider Internal Medicine; Emergency Provider Emergency Medicine; PCP Family Medicine; Visit Provider Internal Medicine
DX: R42 Dizziness and giddiness (principal); R11.0 Nausea; F40.240 Claustrophobia
CPT/HCPCS: 70450; 70496; 70498; 70551; 71045; 80048; 84443; 84484; 85025; 85610; 85730; 93005; 96361; 96374; 96375; 96376; 99221; 99285; J7030; Q9967; A4216; G0378